=== PATIENT | female | born 1950 | race Caucasian/White ===

== ENCOUNTER 2016-11-12 18:21 | Inpatient (IN) | payer MEDICARE, MEDICAID ==
[~2016-11-12] VITALS: Ht 157.5 cm; Wt 82.1 kg
[2016-11-12 20:13] LABS: HEMATOCRIT 35.8 % (36.0-48.0); HEMOGLOBIN 12.2 g/dL (12-16); MCH 34.6 pg (26.0-34.0); MCHC 34.1 g/dL (31.0-37.0); MCV 101.4 fL (80.0-100.0); MEAN PLATELET VOLUME 11.3 fL (7.4-10.4); RBC 3.53 10x6/uL (4.00-5.40); RDW 14.2 % (11.5-14.5)
[2016-11-12 20:20] LABS: PLATELET COUNT 35 10x3/uL (130-400)
[2016-11-12 20:39] LABS: ALBUMIN 2.8 g/dL (3.4-5.0); ANION GAP 13.2 mmol/L (8-16); BILIRUBIN - TOTAL 4.01 mg/dL (0.2-1.3); CALCIUM 8.6 mg/dL (8.5-10.1); CARBON DIOXIDE 26.1 mmol/L (21.0-32.0); POTASSIUM - SERUM 4.3 mmol/L (3.5-5.1); PROTEIN - SERUM 6.8 g/dL (6.4-8.2)
[2016-11-12 20:43] LABS: LYMPHOCYTES 52 % (15-50); MONOCYTES 2 % (2-11); NEUTROPHILS 46 % (40-80); PLATELET ESTIMATE DECREASED
--- NOTE | 2016-11-12 22:50 | NUR ---
ARRIVED TO ROOM 2240 VIA WHEELCHAIR FROM ER. ACCOMPAINED BY STAFF AND FAMILY. AWAKE,ALERT,ORIENTED. COMPLAINTS OF FLU LIKE SYMPTOMS FOR A COUPLE OF DAYS. HAS NONPRODUCTIVE COUGH. IV INFUSING TO LEFT FOREARM WIHTOUT REDNESS OR EDEMA NOTED. PLACED ON DROPLET PRECAUTIONS PER ORDERS. CL IN REACH.
[2016-11-13 04:20] VITALS: BP 131/68; BMI 33.2
[2016-11-13 06:05] LABS: BASOPHILS 0 % (0.0-2.0); EOSINOPHILS 0 % (0-7); HEMATOCRIT 31.2 % (36.0-48.0); HEMOGLOBIN 10.9 g/dL (12-16); LYMPHOCYTES 28.6 % (15-50); MCH 34.9 pg (26.0-34.0); MCHC 34.9 g/dL (31.0-37.0); MEAN PLATELET VOLUME 10.6 fL (7.4-10.4); MONOCYTES 29.3 % (2-11); NEUTROPHILS 42.1 % (40-80); RBC 3.12 10x6/uL (4.00-5.40); RDW 14.4 % (11.5-14.5)
[2016-11-13 06:24] LABS: CARBON DIOXIDE 24.4 mmol/L (21.0-32.0); CREATININE - SERUM 1.6 mg/dL (0.6-1.3)
[2016-11-13 06:25] LABS: POTASSIUM - SERUM 3.4 mmol/L (3.5-5.1)
--- NOTE | 2016-11-13 06:25 | NUR ---
NO CHANGE IN ASSESSMENT. CL IN REACH
[2016-11-13 06:42] LABS: PLATELET COUNT 30 10x3/uL (130-400); WBC 1.5 10x3/uL (4.8-10.8)
[2016-11-13 07:44] LABS: % SATURATION 26 % (15-55); IRON 48 ug/dl (35-150); TOTAL IRON BIND CAPACITY 183 ug/dl (260-445); UNSAT IRON BIND CAPACITY 135 ug/dl (150-375)
[2016-11-13 07:45] LABS: FERRITIN 677 ng/mL (3-244); LDH 215 U/L (81-234)
--- NOTE | 2016-11-13 07:56 | NUR ---
PATIENT IS RESTING QUIETLY WITH EYES CLOSED. NO SIGNS OF DISTRESS NOTED. DROPLET PRECAUTIONS MAINTAINED. BED IN LOWEST POSITION, CALL LIGHT IN REACH. BED RAILS UP X'S 2.
--- NOTE | 2016-11-13 08:15 | NUR ---
TRIED TO SCAN TAMIFLU 75MG CAPSULE. WILL NOT SCAN, POPS UP MESSAGE "BARCODE UNKNOWN ENTER MANUALLY." CALLED AND SPOKE WITH BRANDEN FROM PHARMACY.
--- NOTE | 2016-11-13 11:27 | NUR ---
TAMIFLU WILL NOT SCAN. CALLED BRANDEN FROM PHARMACY.
--- NOTE | 2016-11-13 11:37 | NUR ---
Patient Name: STEPHANIE SAHA Admission Status: ER Accout number: [id number] Admission Date: 11-12-2016 : 1950 Admission Diagnosis: Attending: MARII Current LOS: 1 Anticipated DC Date: 11-17-2016 Planned Disposition: Home Primary Insurance: MEDICARE A & B Discharge Planning Comments: CM MET WITH PATIENT REGARDING D/C NEEDS AND PLANS. PATIENT STATED SHE LIVES AT HOME WITH HER SPOUSE AND DAUGHTER. FAMILY WILL DRIVE HER HOME AT DISCHARGE PER PATIENT. PATIENT HAS BEEN INDEPENDENT WITH HER CARE AND HAS A GLUCOMETER AT HOME (CHECKS 1X A DAY). PATIENTS PCP IS DR. ALVARENGA AT [facility] AND SHE THINKS HER PHARMACY IS [facility] ON [address] PATIENT DENIED NEEDS FOR HOME HEALTH AT THIS TIME. CM WILL CONTINUE TO FOLLOW PATIENT WITH D/C NEEDS AND PLANS. PCP DR. ALVARENGA [address]- [phone] ELIZABETH GRECO (DAUGHTER) [phone] Track Laminating Machine Tender: Jen Olmedo Is the patient Alert and Oriented? Yes 0 * PCP DR. ALVARENGA 0 * Pharm[facility]. [address] 0 * Preadmission Environment Home with Family 0 * ADLs Independent 0 * Equipment Glucometer 0 * List name and contact numbers for known caregivers / representatives who currently or will assist patient after discharge: ELIZABETH GRECO (DAUGHTER) [phone] 0 * Community resources currently utilized None 0 * Additional services required to return to the preadmission environment? Yes 0 * Can the patient safely return to the preadmission environment? Yes 0 * Has this patient been hospitalized within the prior 30 days at any hospital? No 0 Grand Total: 0
[2016-11-13 11:46] VITALS: BP 109/42
[2016-11-13] MEDS ORDERED: TAMIFLU75 MG PO (12:37)
[2016-11-13] MEDS ORDERED: LASIX40 MG PO (12:41)
[2016-11-13] MEDS ORDERED: ALDACTONE50 MG PO (12:43)
[2016-11-13] MEDS ORDERED: ZIAC 10-6.25 MG1 TAB PO (12:43)
[2016-11-13] MEDS ORDERED: GLUCOTROL 5 MG T5 MG PO (12:43)
[2016-11-13] MEDS ORDERED: SYNTHROID50 MCG PO (12:44)
[2016-11-13] MEDS ORDERED: KLOR-CON M2020 MEQ PO (12:44)
[2016-11-13 15:19] VITALS: Ht 157.5 cm; Wt 82.1 kg
[2016-11-13 15:34] VITALS: BP 113/64
--- NOTE | 2016-11-13 16:45 | NUR ---
PATIENT'S DAUGHTER STATED PATIENT WAS DX WITH LIVER CIRRHOSIS FROM HER DOCTOR IN [facility], AND TOLD SHE NEEDED A LIVER TRANSPLANT.
[2016-11-13 18:57] LABS: APPEARANCE CLEAR (CLEAR); BILIRUBIN NEGATIVE (NEGATIVE); COLOR DK YELLOW (YELLOW); GLUCOSE NEGATIVE (NEGATIVE); KETONE NEGATIVE (NEGATIVE); LEUKOCYTE ESTERASE TRACE (NEGATIVE); NITRITE NEGATIVE (NEGATIVE); PROTEIN NEGATIVE (NEGATIVE)
[2016-11-13 18:58] LABS: BACTERIA MODERATE /hpf (NONE SEEN); MUCUS <1+ /lpf (NONE SEEN); RED CELLS - URINE 0-5 /hpf (0-5); WHITE CELLS - URINE 0-5 /hpf (0-5)
[2016-11-13 21:54] VITALS: BP 120/37
--- NOTE | 2016-11-14 00:34 | NUR ---
PT IS ALERT AND ORIENTED, ABLE TO VERBALIZE NEEDS. THE PT IS IN ISOLATION FOR DROPLET, POSSIBLE FLU. SHE HAD HER BOYFRIEND WITH HER UNTIL ABOUT 2200. SHE HAS ABLE TO TAKE HER MEDS AT BEDTIME ORDERED AND HAS BEEN ASSISTED UP TO VOID WHEN NEEDED. THE BED IS LOW, RAILS UP X'S 2 WITH THE CALL LIGHT AT HAND.
[2016-11-14 06:10] LABS: HEMATOCRIT 34.1 % (36.0-48.0); HEMOGLOBIN 11.7 g/dL (12-16); MCH 34.5 pg (26.0-34.0); MCHC 34.3 g/dL (31.0-37.0); MCV 100.6 fL (80.0-100.0); RBC 3.39 10x6/uL (4.00-5.40); RDW 14.3 % (11.5-14.5)
[2016-11-14 06:30] LABS: WBC 2.2 10x3/uL (4.8-10.8)
[2016-11-14 06:31] LABS: PLATELET COUNT 29 10x3/uL (130-400)
[2016-11-14 06:36] LABS: ALBUMIN 2.6 g/dL (3.4-5.0); BILIRUBIN - TOTAL 3.34 mg/dL (0.2-1.3); CALCIUM 7.9 mg/dL (8.5-10.1); CARBON DIOXIDE 23.5 mmol/L (21.0-32.0); CREATININE - SERUM 1.5 mg/dL (0.6-1.3); POTASSIUM - SERUM 3.5 mmol/L (3.5-5.1); PROTEIN - SERUM 6.5 g/dL (6.4-8.2)
[2016-11-14 07:31] LABS: LYMPHOCYTES 28 % (15-50); MONOCYTES 4 % (2-11); NEUTROPHILS 52 % (40-80)
[2016-11-14 07:33] LABS: PLATELET ESTIMATE DECREASED; SPHEROCYTES 1+; TEAR DROP CELLS OCC
[2016-11-14 08:21] LABS: FOLATE (FOLIC ACID) - SERUM 11.4 ng/mL (>3.0)
[2016-11-14 08:44] VITALS: BP 122/41
--- NOTE | 2016-11-14 09:39 | NUR ---
AWAKE AND ALERT. ORIENTED X3. C/O SORE THROAT THIS AM. TOOK AM MEDS OK. REFUSED BREAKFAST TRAY. LUNGS HAVE CRACKLES IN BILATERAL LOWER LOBES. OCCASSIONAL PRODUCTIVE COUGH NOTED. IV TO LEFT FOREARM PATENT WITHOUT REDNESS AT INSERTION SITE. DENIES NEEDS. SKIN IS INTACT WITHOUT REDNESS.
--- NOTE | 2016-11-14 11:00 | NUR ---
RESTING QUIETLY WITH EYES CLOSED.
[2016-11-14 11:49] VITALS: BP 133/43
--- NOTE | 2016-11-14 13:00 | NUR ---
UP TO BR WITH ONE PERSON ASSIST. VOIDED 400CC CLEAR YELLOW URINE WITHOUT DIFFICULTY, SKIN CARE PER SELF. REPOSITIONED IN BED FOR COMFORT.
[2016-11-14 13:16] LABS: HAPTOGLOBIN <10 mg/dL (34-200)
[2016-11-14 15:23] LABS: SPE - A/G RATIO 0.8 (0.7-1.7); SPE - ALBUMIN 2.6 g/dL (2.9-4.4); SPE - ALPHA-1 GLOBULIN 0.2 g/dL (0.0-0.4); SPE - ALPHA-2 GLOBULIN 0.3 g/dL (0.4-1.0); SPE - BETA GLOBULIN 0.7 g/dL (0.7-1.3); SPE - M-SPIKE Not Observed g/dL (Not Observed); SPE - TOTAL PROTEIN 5.8 g/dL (6.0-8.5)
[2016-11-14 15:37] VITALS: BP 106/32
--- NOTE | 2016-11-14 16:00 | NUR ---
UP TO BR WITH MIN ASSIST OF ONE. HAD LEAKAGE ON THE WAY TO BR. VOIDED WITHOUT DIFFICULTY. REPOSITIONED IN BED FOR COMFORT.
--- NOTE | 2016-11-14 17:00 | NUR ---
FSBS 56. VISION BLURRY AND SKIN SLIGHTLY CLAMMY. GIVEN 1/2 AMP D50 AND WILL RECHECK.
--- NOTE | 2016-11-14 18:27 | NUR ---
[id number] AT THIS TIME. ALL SYMPTOMS GONE. NO CHANGES NOTED.
[2016-11-14 21:45] VITALS: BP 110/38
--- NOTE | 2016-11-14 22:59 | NUR ---
ASSESSED AT THE TIME OF ARRIVAL FROM ICU. PT IS ALERT AND ORIENTED, ABLE TO VERBALIZE NEEDS. SHE HAS FLUIDS INFUSING TO HER RIGHT HAND ORDERED AND WE HAVE IN IN NEUTROPENIA FOR HER JPROTECTION. O2 IS AT 2 LITERS AND WE ARE ASSISTING HER UP TO THE BATHROOM TO VOID. SHE RECEIVED PAIN MEDS JUST BEFORE COMING TO OUR FLOOR AND SHE IS FAILY COMFORTABLE AT THIS TIME. THE BED IS LOW, RAILS UP X'S 2 WITH THE CALL LIGHT AT HAND.
[2016-11-14 23:00] VITALS: BP 98/38
--- NOTE | 2016-11-14 23:59 | NUR ---
ASSESSED AT THE BEGINNING OF THE SHIFT. PT IS ALERT AND ORIENTED, ABLE TO VERBALIZE NEEDS. SHE IS NOT FEELING BAD TONIGHT SHE WAS LAST NIGHT. SHE REMAINS IN ISOLATION FOR DROPLET DUE TO FLU. SHE IS INCONT. FREQUENTLY AND NEEDS CLEANED UP. HER BOYFRIEND WAS AT THE BEDSIDE UNTIL ABOUT 2100 AND THEN HE LEFT. SHE WAS GIVEN A SNACK FOR HER HS BLOOD SUGAR AND WE WILL KEEP AN EYE ON HER BS. THE BED IS LOW, RAILS UP X'S 2 WITH THE CALL LIGHT AT HAND.
[2016-11-15 04:00] VITALS: BP 84/33
[2016-11-15 07:37] LABS: BASOPHILS 0 % (0.0-2.0); EOSINOPHILS 0 % (0-7); HEMATOCRIT 29.4 % (36.0-48.0); HEMOGLOBIN 10.2 g/dL (12-16); LYMPHOCYTES 30.3 % (15-50); MCH 34.6 pg (26.0-34.0); MCHC 34.7 g/dL (31.0-37.0); MCV 99.7 fL (80.0-100.0); MEAN PLATELET VOLUME 11.4 fL (7.4-10.4); MONOCYTES 27.7 % (2-11); RBC 2.95 10x6/uL (4.00-5.40); RDW 14.2 % (11.5-14.5)
[2016-11-15 07:40] LABS: WBC 1.2 10x3/uL (4.8-10.8)
[2016-11-15 07:41] LABS: PLATELET COUNT 24 10x3/uL (130-400)
[2016-11-15 07:45] LABS: ANION GAP 9.2 mmol/L (8-16); BILIRUBIN - TOTAL 2.24 mg/dL (0.2-1.3); CALCIUM 7.5 mg/dL (8.5-10.1); CREATININE - SERUM 1.2 mg/dL (0.6-1.3); POTASSIUM - SERUM 3.2 mmol/L (3.5-5.1); PROTEIN - SERUM 5.3 g/dL (6.4-8.2)
[2016-11-15 08:57] VITALS: BP 128/70
--- NOTE | 2016-11-15 09:09 | NUR ---
AWAKE AND AELRT. RECHECK ON FSBS 137. LUNGS ARE CLEAR BILATERALLY BUT DIMINISHED IN RIGHT LL. PRODUCTIVE COUGH NOTED WITH GRAYISH SPUTUM. SKIN IS INTACT WITHOUT REDNESS. IV TO RIGHT FOREARM IS PATENT WITHOUT REDNESS AT INSERTION SITE. REPORTS VISION NORMAL AT THIS TIME. TO BR WITH SBA. VOIDED CLEAR YELLOW URINE TIWTHOUT DIFFICULTY. UP WITH PT AT THIS TIME.
--- NOTE | 2016-11-15 10:00 | NUR ---
AMBULATED IN HALLWAY WITH PT. RESTING QUIETLY IN BED AT THIS TIME.
--- NOTE | 2016-11-15 12:00 | NUR ---
FSBS 106. LUNCH TRAY SERVED IN ROOM. ENCOURAGED TO EAT ALL OF MEAL. WILL MONITOR.
[2016-11-15 12:24] VITALS: BP 122/68
--- NOTE | 2016-11-15 15:57 | NUR ---
RESTING QUIETLY WITH EYES CLOSED. DENIES NEEDS.
[2016-11-15 16:02] VITALS: BP 111/64
--- NOTE | 2016-11-15 18:47 | NUR ---
FSBS PRIOR TO MEAL WAS 137. NO COVERAGE NEEDED. ATE ALL OF SUPPER TRAY WITHOUT DIFFICULTY. NO CHANGES NOTED. DENIES NEEDS.
--- NOTE | 2016-11-15 20:11 | NUR ---
REC'D LYING IN BED AWAKE AND ALERT. RESP EVEN AND UNLABORED WITH NO DISTRESS NOTED. CAN EXPRES NEEDS AND WANTS. C/O HIP AND LEG PAIN RATING 7/10 ON PAIN SCALE. ASSESSEMENT COMPLETED. C/L IN REACH AT BEDSIDE.
[2016-11-15 20:44] VITALS: BP 123/54
[2016-11-16 06:46] LABS: ALBUMIN 2.1 g/dL (3.4-5.0); ANION GAP 10.6 mmol/L (8-16); BILIRUBIN - TOTAL 2.28 mg/dL (0.2-1.3); CALCIUM 7.6 mg/dL (8.5-10.1); CARBON DIOXIDE 25.8 mmol/L (21.0-32.0); CREATININE - SERUM 1.2 mg/dL (0.6-1.3); POTASSIUM - SERUM 3.4 mmol/L (3.5-5.1); PROTEIN - SERUM 5.7 g/dL (6.4-8.2)
[2016-11-16 07:15] LABS: BASOPHILS 0.7 % (0.0-2.0); EOSINOPHILS 1.4 % (0-7); HEMATOCRIT 30.6 % (36.0-48.0); HEMOGLOBIN 10.5 g/dL (12-16); LYMPHOCYTES 28.9 % (15-50); MCH 34.4 pg (26.0-34.0); MCHC 34.3 g/dL (31.0-37.0); MCV 100.3 fL (80.0-100.0); MEAN PLATELET VOLUME 11.1 fL (7.4-10.4); MONOCYTES 21.1 % (2-11); NEUTROPHILS 47.9 % (40-80); RBC 3.05 10x6/uL (4.00-5.40); RDW 14.3 % (11.5-14.5)
[2016-11-16 07:16] LABS: PLATELET COUNT 23 10x3/uL (130-400); WBC 1.4 10x3/uL (4.8-10.8)
[2016-11-16 07:53] VITALS: BP 126/72
--- NOTE | 2016-11-16 08:18 | NUR ---
AWAKE AND ALERT. ORIENTED X3. NO C/O THIS AM. LUNGS ARE CLEAR THROUGHOUT LUNG CUELLAR BUT DIMINISHED. COUGH IS PRODUCTIVE AT TIMES BUT LESS FREQUENT THAN YESTERDAY. IV TO RIGHT FOREARM IS PATENT WITHOUT REDNESS AT INSERTION SITE. SKIN IS INTACT WITHOUT REDNESS. DENIES NEEDS.
--- NOTE | 2016-11-16 10:00 | NUR ---
VISITOR AT BEDSIDE. DENIES NEEDS.
[2016-11-16 15:56] VITALS: BP 124/68
--- NOTE | 2016-11-16 19:03 | NUR ---
FSBS BEFORE SUPPER WAS 194. GIVEN 2 UNITS HUMALOG SUBQ FOR SAME. ATE 100% OF SUPPER. SIGNIFICANT OTHER IN ROOM. NO CHANGES NOTED. DENIES NEEDS.
--- NOTE | 2016-11-16 21:30 | NUR ---
PT WAS DISCHARGED AT THIS TIME WITH PERSONAL BELONGS. PT REFUSED TO LET STAFF TAKE HER OUT IN W/C.
[2016-11-17 16:12] LABS: PARVOVIRUS B-19 - IGG 9.1 index (0.0-0.8); PARVOVIRUS B-19 - IGM 0.3 index (0.0-0.8)
[2016-11-19 15:22] LABS: AEROBE ID Final report (())
== END 2016-11-16 21:30 | disposition home or self-care (01) | DRG 809 ==
LOC: D.ER 18:21 → D.MS 21:10
PROVIDERS: Emergency Medicine; Legal Medicine; Physician Assistant Medical; ADMIT Family Medicine
DX: D61.818 Other pancytopenia (principal); N17.9 Acute kidney failure, unspecified; J11.1 Influenza due to unidentified influenza virus with other respiratory manifestations; E86.0 Dehydration; R53.81 Other malaise; R53.83 Other fatigue; E03.9 Hypothyroidism, unspecified; I10 Essential (primary) hypertension; R01.1 Cardiac murmur, unspecified; E11.65 Type 2 diabetes mellitus with hyperglycemia

== ENCOUNTER 2017-03-22 15:21 | Emergency (ER) | payer MEDICARE, MEDICAID ==
[2016-11-13 15:19] VITALS: BMI 33.1
[~2017-03-22 15:21] MED LIST: ALDACTONE50 MG PO; GLUCOTROL 5 MG T5 MG PO; KLOR-CON M2020 MEQ PO; LASIX40 MG PO; SYNTHROID50 MCG PO; TAMIFLU75 MG PO; ZIAC 10-6.25 MG1 TAB PO
== END 2017-03-22 16:58 | disposition home or self-care (01) ==
LOC: D.ER 15:21
DX: F41.0 Panic disorder [episodic paroxysmal anxiety] (principal); E11.9 Type 2 diabetes mellitus without complications; I10 Essential (primary) hypertension; E03.9 Hypothyroidism, unspecified; R06.00 Dyspnea, unspecified; R00.1 Bradycardia, unspecified

== ENCOUNTER 2017-04-16 20:30 | Inpatient (IN) | payer MEDICARE, MEDICAID ==
[~2017-04-16] VITALS: Ht 157.5 cm; Wt 85.3 kg
[2017-04-16 21:14] LABS: APPEARANCE CLEAR (CLEAR); COLOR YELLOW (YELLOW); LEUKOCYTE ESTERASE NEGATIVE (NEGATIVE); NITRITE NEGATIVE (NEGATIVE)
[2017-04-16 21:15] LABS: BILIRUBIN NEGATIVE (NEGATIVE); GLUCOSE NEGATIVE (NEGATIVE); KETONE NEGATIVE (NEGATIVE); PROTEIN NEGATIVE (NEGATIVE)
[2017-04-16 21:17] LABS: UDS - AMPHET NEGATIVE QUAL (NEGATIVE); UDS - BARB NEGATIVE QUAL (NEGATIVE); UDS - BENZO NEGATIVE QUAL (NEGATIVE); UDS - COCAINE NEGATIVE QUAL (NEGATIVE); UDS - METH NEGATIVE QUAL (NEGATIVE); UDS - OPIATE NEGATIVE QUAL (NEGATIVE); UDS - PCP NEGATIVE QUAL (NEGATIVE); UDS - THC NEGATIVE QUAL (NEGATIVE)
[2017-04-16 21:19] LABS: BASOPHILS 0.4 % (0-2); EOSINOPHILS 1.6 % (0-7); HEMATOCRIT 32.5 % (36.0-48.0); HEMOGLOBIN 11.3 g/dL (12-16); IMMATURE GRANULOCYTES 0.4 % (0-5); LYMPHOCYTES 17.1 % (15-50); MCHC 34.8 g/dL (31.0-37.0); MCV 100.6 fL (80.0-100.0); MEAN PLATELET VOLUME 9.7 fL (7.4-10.4); NEUTROPHILS 64.5 % (40-80); RBC 3.23 10x6/uL (4.00-5.40); WBC 5.1 10x3/uL (4.8-10.8)
[2017-04-16 21:24] LABS: PLATELET COUNT 62 10x3/uL (130-400)
[2017-04-16 21:43] LABS: PLATELET ESTIMATE DECREASED
[2017-04-16 21:54] LABS: ALBUMIN 2.7 g/dL (3.4-5.0); ANION GAP 9.8 mmol/L (8-16); BILIRUBIN - TOTAL 4.32 mg/dL (0.2-1.3); CALCIUM 9.1 mg/dL (8.5-10.1); CARBON DIOXIDE 23.6 mmol/L (21.0-32.0); CREATININE - SERUM 1.4 mg/dL (0.6-1.3); POTASSIUM - SERUM 4.4 mmol/L (3.5-5.1); PROTEIN - SERUM 7.1 g/dL (6.4-8.2)
[2017-04-16 23:58] VITALS: BP 172/68; BMI 34.4
[2017-04-17] VITALS (7 sets, daily range): BP systolic 108–172; BP diastolic 41–79
--- NOTE | 2017-04-17 00:07 | NUR ---
RN NOTE: ADMISSION ASSESSMENT COMPLETE. PT HAS MEMORY DEFICITS AND C/O CONSTIPATION. BED ALARM IN PLACE FOR SAFETY. WILL MONITOR CLOSELY FOR NEEDS.
--- NOTE | 2017-04-17 07:00 | NUR ---
REPORT RECIEVED ASSUMED CARE. PATIENT IN BED WITH IV INTACT. NO COMPLAINTS. CALL LIGHT WITHIN REACH.
--- NOTE | 2017-04-17 07:10 | NUR ---
REPORT RECIEVED ASSUMED CARE. PATIENT IN BED WITH IV INTACT. NO COMPLAINTS AT THIS TIME. CALL LIGHT WITHIN REACH.
[2017-04-17 09:40] LABS: BASOPHILS 0.4 % (0-2); EOSINOPHILS 2.8 % (0-7); HEMATOCRIT 26.3 % (36.0-48.0); HEMOGLOBIN 9.1 g/dL (12-16); LYMPHOCYTES 28.5 % (15-50); MCH 34.5 pg (26.0-34.0); MCHC 34.6 g/dL (31.0-37.0); MCV 99.6 fL (80.0-100.0); MEAN PLATELET VOLUME 11.1 fL (7.4-10.4); MONOCYTES 12.6 % (2-11); NEUTROPHILS 55.7 % (40-80); RBC 2.64 10x6/uL (4.00-5.40)
[2017-04-17 09:45] LABS: ALBUMIN 2.2 g/dL (3.4-5.0); ANION GAP 12.6 mmol/L (8-16); BILIRUBIN - TOTAL 4.55 mg/dL (0.2-1.3); CALCIUM 8.6 mg/dL (8.5-10.1); CARBON DIOXIDE 20.9 mmol/L (21.0-32.0); CREATININE - SERUM 1.1 mg/dL (0.6-1.3); POTASSIUM - SERUM 4.5 mmol/L (3.5-5.1); PROTEIN - SERUM 5.8 g/dL (6.4-8.2)
[2017-04-17 10:09] LABS: WBC 2.5 10x3/uL (4.8-10.8)
[2017-04-17 10:10] LABS: PLATELET COUNT 21 10x3/uL (130-400)
--- NOTE | 2017-04-17 10:17 | NUR ---
Rehab Note- Acute Rehab Prescreen order received. The patient has an acute rehab diagnosis, will await Physical therapy eval to see patient's physical mobility. Will follow at this time. Thank you for this referral! Stefanie Gonzalez RN Clinical Liaison, [facility] Rehab
--- NOTE | 2017-04-17 11:28 | NUR ---
Rehab Note- Visited with the patient and provided acute rehab information and also my contact. Will plan on admitting to [facility] Acute Inpatient Rehab when the is ready for discharge from the acute hospital. Thank you for this referral! Stefanie Gonzalez RN Clinical Liaison, [facility] Rehab
--- NOTE | 2017-04-17 11:30 | NUR ---
PLATELETS READY AT THIS TIME. EXPLAINED TO PATIENT WOULD HAVE HER PLATELETS FOR HER AFTER LUNCH AND GET HER TO SIGN CONSENT. VERBALIZED UNDERSTANDING. CALL LIGHT WITHIN REACH. FAMILY AT BEDSIDE.
[2017-04-17] MEDS ORDERED: BAYER ASPIRIN325 MG PO (11:59)
[2017-04-17] MEDS ORDERED: KLOR-CON M2020 MEQ PO (11:59)
[2017-04-17] MEDS ORDERED: LISINOPRIL10 MG PO (12:00)
[2017-04-17] MEDS ORDERED: DULCOLAX10 MG/SUPP RC (12:00)
[2017-04-17] MEDS ORDERED: LASIX40 MG (12:08)
[2017-04-17] MEDS ORDERED: PROTONIX20 MG PO (12:09)
[2017-04-17] MEDS ORDERED: OMNIPRED5 ML (12:13)
[2017-04-17] MEDS ORDERED: OCUFLOX 0.3 % OP5 ML RIGHT EYE (12:16)
--- NOTE | 2017-04-17 12:30 | NUR ---
PATIENT SIGNED CONSENT AT THIS TIME. IV INTACT. NO COMPLAINTS. WILL START PLATELETS AFTER PATIENT FINISHES EATING.
--- NOTE | 2017-04-17 13:45 | NUR ---
PATIENT GETTING ECHO DONE AT THIS TIME.
--- NOTE | 2017-04-17 14:15 | NUR ---
PATIENT IV REMOVED DUE TO BLEEDING. WILL RESTART WHEN BACK FROM MRI AND GIVE PLATELETS.
--- NOTE | 2017-04-17 15:30 | NUR ---
IV RESTARTED IN RIGHT AC X 3 STICKS. PATIENT TOLERATED WITH SMALL AMOUNT OF PAIN. FAMILY AT BEDSIDE. CALL LIGHT WITHIN REACH.
--- NOTE | 2017-04-17 15:50 | NUR ---
PLATELETS STARTED AT THIS TIME. STABLE. NO COMPLAINTS OR SIGNS OF DISTRESS. FAMILY AT BEDSIDE. WILL CONTINUE TO MONITOR.
--- NOTE | 2017-04-17 16:10 | NUR ---
PLATELETS FINISHED AT THIS TIME. VS STABLE. NO COMPLAINTS. CALL LIGHT WITHIN REACH.
--- NOTE | 2017-04-17 16:15 | NUR ---
PATIENT RECIEVED DISCHARGE INSTRUCTIONS VERBALIZED UNDERSTANDING. IV REMOVED WITH CATH TIP INTACT. PATIENT REFUSED WHEELCHAIR, AMBULATED DOWN TO PRIVATE VEHICLE WITH PERSONAL BELONGINGS. CALL LIGHT WITHIN REACH.
--- NOTE | 2017-04-17 16:20 | NUR ---
PATIENT SECOND UNIT OF PLATELETS GOING. NO COMPLAINTS OR SIGNS OF DISTRESS. VS STABLE. CALL LIGHT WITHIN REACH. FAMILY AT BEDSIDE.
--- NOTE | 2017-04-17 17:45 | NUR ---
PATIENT SITTING UP IN BED EATING. NO COMPLAINTS. CALL LIGHT WITHIN REACH.
[2017-04-18 03:58] VITALS: BP 122/46
[2017-04-18 05:20] LABS: BASOPHILS 0.4 % (0-2); EOSINOPHILS 2.2 % (0-7); HEMOGLOBIN 9.5 g/dL (12-16); LYMPHOCYTES 20.5 % (15-50); MCH 35.3 pg (26.0-34.0); MCHC 35.2 g/dL (31.0-37.0); MCV 100.4 fL (80.0-100.0); MEAN PLATELET VOLUME 9.1 fL (7.4-10.4); MONOCYTES 18.3 % (2-11); NEUTROPHILS 58.6 % (40-80); RBC 2.69 10x6/uL (4.00-5.40); RDW 15.1 % (11.5-14.5); WBC 2.8 10x3/uL (4.8-10.8)
[2017-04-18 05:23] LABS: PLATELET COUNT 50 10x3/uL (130-400)
[2017-04-18 05:56] LABS: ALBUMIN 2.3 g/dL (3.4-5.0); ANION GAP 12.9 mmol/L (8-16); BILIRUBIN - TOTAL 3.23 mg/dL (0.2-1.3); CALCIUM 8.6 mg/dL (8.5-10.1); CARBON DIOXIDE 22.1 mmol/L (21.0-32.0); CHOL - HDL RATIO 2.8 ratio (2.3-4.1); CREATININE - SERUM 1.3 mg/dL (0.6-1.3); LDL-HDL RATIO 1.4 ratio (1.5-3.5); PROTEIN - SERUM 6.2 g/dL (6.4-8.2)
--- NOTE | 2017-04-18 06:52 | NUR ---
CRITICAL AMMONIA - 110. INCREASE LACTULOSE TO [address] CARLTON TELEPHONE ORDER.
--- NOTE | 2017-04-18 07:05 | NUR ---
PT REC'D FROM [facility]. RESTING IN BED WATCHING TV. AAOX4. PUPILS PERRLA. NO COMPLAINTS OF PAIN. REGULAR HEART RATE AND RHYTHM. PHOTOGRAPHERS' MODEL. ON. LUNG SOUNDS CLEAR AND EQUAL BILAT. ABD ROUND, BOWEL SOUNDS ACTIVE X4 QUADS, SOFT WITH NO PAIN ON PALPATION. SLIGHT YELLOW COLOR NOTED TO POSTERIOR FOREARMS. +2 PEDAL PULSES BILAT. SCD'S OFF AT THIS TIME. PIV TO R AC FREE OF REDNESS AND SWELLING. BED LOW, CALL LIGHT IN REACH, DENIES NEEDS. CPOC.
[2017-04-18 08:13] LABS: APTT 38.3 SECONDS (22.8-39.4); INR 1.75 (0.85-1.17); PROTIME 20.4 SECONDS (11.6-15.0)
[2017-04-18 09:02] VITALS: BP 107/44
--- NOTE | 2017-04-18 09:15 | NUR ---
MORNING MEDS PASSED AT THIS TIME. BED LOW, CALL LIGHT IN REACH, DENIES NEEDS AT THIS TIME. CPOC.
--- NOTE | 2017-04-18 10:45 | NUR ---
DR. ZABALA AT BEDSIDE DISCUSSING POC. BOYFRIEND AT BEDSIDE. UPDATE PROVIDED. CONTRAST BROUGHT OVER BY BJ JOSHUA FROM CT. EXTRA BLANKET PROVIDED. BED LOW, CALL LIGHT IN REACH, DENIES NEEDS. CPOC.
[2017-04-18 12:44] VITALS: BP 126/52
--- NOTE | 2017-04-18 14:30 | NUR ---
CALLED TO ASK ABOUT PT CT SCAN AND WHEN IT WOULD BE DONE. SPOKE WITH SAVANNAH. STATED, "SHE'S NEXT IN THE PILE!" MESSAGE RELAYED TO PATIENT. PT HAD LARGE WATER BM. HAS BEEN KEPT NPO FOR CT SCAN. BED LOW, CALL LIGTH IN REACH, DENIES NEEDS. CPOC.
[2017-04-18 15:36] VITALS: BP 135/47
[2017-04-18 19:00] VITALS: BP 113/37
[2017-04-19] VITALS: BP 114/38
[2017-04-19 04:00] VITALS: BP 103/35
[2017-04-19 07:31] LABS: BASOPHILS 0.2 % (0-2); EOSINOPHILS 2.4 % (0-7); HEMATOCRIT 30.1 % (36.0-48.0); HEMOGLOBIN 10.7 g/dL (12-16); IMMATURE GRANULOCYTES 0.3 % (0-5); LYMPHOCYTES 15.3 % (15-50); MCHC 35.5 g/dL (31.0-37.0); MCV 101.3 fL (80.0-100.0); MEAN PLATELET VOLUME 9.9 fL (7.4-10.4); MONOCYTES 14.3 % (2-11); NEUTROPHILS 67.5 % (40-80); PLATELET COUNT 55 10x3/uL (130-400); RBC 2.97 10x6/uL (4.00-5.40); RDW 15.8 % (11.5-14.5)
[2017-04-19 07:45] LABS: WBC 5.8 10x3/uL (4.8-10.8)
[2017-04-19 08:07] LABS: ALBUMIN 2.2 g/dL (3.4-5.0); ANION GAP 12.9 mmol/L (8-16); BILIRUBIN - TOTAL 3.65 mg/dL (0.2-1.3); CALCIUM 8.5 mg/dL (8.5-10.1); CARBON DIOXIDE 22.3 mmol/L (21.0-32.0); CREATININE - SERUM 1.3 mg/dL (0.6-1.3); POTASSIUM - SERUM 4.2 mmol/L (3.5-5.1); PROTEIN - SERUM 6.1 g/dL (6.4-8.2)
--- NOTE | 2017-04-19 09:03 | NUR ---
PATIENT ALERT IN MID DORANTES POSITION. RESPIRATIONS EVEN AND UNLABORED. SIDE RAILS UP X2. BED IN LOW POSITION. CALL LIGHT IN REACH.
[2017-04-19 09:41] VITALS: BP 105/46
[2017-04-19 12:33] VITALS: BP 117/33
[2017-04-19 17:38] VITALS: BP 115/30
[2017-04-19 20:00] VITALS: BP 117/35
--- NOTE | 2017-04-19 22:00 | NUR ---
RECEIVED VIT K IVPB FROM JUNE, [employer] AND ADMINISTERED TO PT ALONG WITH ORAL MEDS THAT WERE "UNVERIFIED" AND NOT AVAILABLE D/T PHARMACY CLOSED. PT ALERT & ORIENTED. CONTINUES TO HAVE LOOSE STOOLS WITH ADMINISTRATION OF LACTULOSE. COMPLETE ASSESSMENT PER FLOW-SHEET. WILL CONTINUE TO MONITOR.
[2017-04-20] VITALS: BP 129/38
[2017-04-20 04:00] VITALS: BP 104/38
[2017-04-20 05:52] LABS: BASOPHILS 0.2 % (0-2); EOSINOPHILS 2.8 % (0-7); HEMATOCRIT 28.5 % (36.0-48.0); HEMOGLOBIN 9.8 g/dL (12-16); IMMATURE GRANULOCYTES 0.2 % (0-5); LYMPHOCYTES 20.6 % (15-50); MCH 34.8 pg (26.0-34.0); MCHC 34.4 g/dL (31.0-37.0); MCV 101.1 fL (80.0-100.0); MEAN PLATELET VOLUME 9.8 fL (7.4-10.4); MONOCYTES 15.9 % (2-11); NEUTROPHILS 60.3 % (40-80); PLATELET COUNT 53 10x3/uL (130-400); RBC 2.82 10x6/uL (4.00-5.40); RDW 15.7 % (11.5-14.5); WBC 5.3 10x3/uL (4.8-10.8)
[2017-04-20 05:53] LABS: INR 1.86 (0.85-1.17); PROTIME 21.4 SECONDS (11.6-15.0)
[2017-04-20 06:17] LABS: % SATURATION 93 % (15-55); IRON 161 ug/dl (35-150); TOTAL IRON BIND CAPACITY 172 ug/dl (260-445)
[2017-04-20 06:18] LABS: UNSAT IRON BIND CAPACITY 11 ug/dl (150-375)
[2017-04-20 06:24] LABS: ALBUMIN 2.2 g/dL (3.4-5.0); BILIRUBIN - TOTAL 4.1 mg/dL (0.2-1.3); CALCIUM 8.5 mg/dL (8.5-10.1); CARBON DIOXIDE 21.2 mmol/L (21.0-32.0); CREATININE - SERUM 1.2 mg/dL (0.6-1.3); POTASSIUM - SERUM 4.2 mmol/L (3.5-5.1); PROTEIN - SERUM 5.8 g/dL (6.4-8.2)
--- NOTE | 2017-04-20 07:30 | NUR ---
PT ASSESMENT COMPLETE SEE FLOWSHEET AWAKE AND ALERT ORINETED X 3 LUNGS CLAER PT WITH ABD DISTENTION NO TENDERNESS NOTED AT THIS TIME. ALL ALDS PER MINIMAL ASSIST UP AD BRYAN FOR TOILETING HAS SOME YELLOWING NOTED TO SCLERA BILATERAL. WILL MONITOR.
[2017-04-20 09:32] VITALS: BP 137/66
--- NOTE | 2017-04-20 10:21 | NUR ---
Patient Name: STEPHANIE SAHA Admission Status: ER Accout number: [id number] Admission Date: 04-16-2017 : 1950 Admission Diagnosis:CEREBRAL INFARCTION, UNSPECIFIED Attending: FOSTER Current LOS: 4 Anticipated DC Date: 04-22-2017 Planned Disposition: Home Primary Insurance: MEDICARE A & B Discharge Planning Comments: CM MET WITH PATIENT REGARDING D/C NEEDS AND PLANS. PATIENTS STATED SHE LIVES WITH HER BOYFRIEND (EDILIA BUCK) AND HER DAUGHTER LIVES WITH THEM. PATIENT STATED SHE HAS A RAMP TO ENTER HER HOME AND NO STAIRS INSIDE. PATIENT IS INDEPENDENT WITH HER CARE AND HAS A WALKER, MOTORIZED WHEELCHAIR, SHOWER CHAIR, AND GLUCOMETER (CHECKS DAILY). PATIENT SEES [facility]. PATIENT DID NOT WANT HOME HEALTH AT THIS TIME. CM WILL CONTINUE TO FOLLOW PATIENT WITH D/C NEEDS AND PLANS. PCP [facility] [employer] [facility]- [phone] EDILIA BUCK (BOYFRIEND) TEXT ONLY [phone] ELIZABETH GRECO (DAUGHTER) [phone] Strategic Alliances Manager: Jen Olmedo Is the patient Alert and Oriented? Yes 0 * How many steps to enter\exit or inside your home? RAMP 0 * PCP [facility] 0 * Pharmacy [facility] [address] 0 * Preadmission Environment Home with Family 0 * ADLs Independent 0 * Equipment Glucometer Shower Chair Walker Wheelchair 0 * List name and contact numbers for known caregivers / representatives who currently or will assist patient after discharge: ELIZABETH GRECO (DAUGHTER) [phone] EDILIA BUCK (BOYFRIEND) [phone] TEXT ONLY 0 * Community resources currently utilized None 0 * Additional services required to return to the preadmission environment? Yes 0 * Can the patient safely return to the preadmission environment? Yes 0 * Has this patient been hospitalized within the prior 30 days at any hospital? No 0 Grand Total: 0
--- NOTE | 2017-04-20 10:29 | NUR ---
Rehab Note- The patient continues to have a medical work up- having thorough lab work up, bone marrow biopsy, and liver ultrasound. Will accept the patient to [facility] acute rehab when medically stable & ready for discharge from the acute hospital. Spoke with KRYSTLE Li. Will continue to follow at this time. Thank you for this referral! Stefanie Gonzalez RN Clinical Liaison, [facility] Rehab
--- NOTE | 2017-04-20 11:28 | NUR ---
PT RESTING IN BED NPO AT THIS TIME IS TO HAVE BONE MARROW BIOPSY THIS AFTERNOON PER IR
[2017-04-20 11:58] VITALS: BP 110/38
--- NOTE | 2017-04-20 16:38 | NUR ---
OT NOTE: PT COMPLETED ADL MOB WITH SBA. PT COMPLETED BED MOB WITH SUPV. PT COMPLETED TOILETING WITH SUPV. PT COMPLETED HYGIENE TASKS WITH SBA. PT COMPLETED BUE AROM EXS FOR INCREASED I WITH ADLS. THANK YOU, VAISHNAVI TALBOT
[2017-04-20 17:16] VITALS: BP 125/30
--- NOTE | 2017-04-20 18:12 | NUR ---
NO DISTRESS NOTED FAMILY AT SIDE CALL LIGHT INREACH SIDE RAILS UP X 2 VOICES NEEDS TO STAFF
[2017-04-20 19:00] VITALS: BP 93/34
--- NOTE | 2017-04-20 20:43 | NUR ---
Wade) REC'D.IN BED VISITORS AT BED SIDE.ALERT ORIENTED X3 AT PRESENT TIME CATRACHITA DENIES ANY DISCOMFORT AT PRESENT TIME WILL CONTINUE TO MONITOR FOR ANY CHGES. AND FOLLOW CURRENT PLAN OF CARE.
[2017-04-21] VITALS (7 sets, daily range): BP systolic 106–141; BP diastolic 28–98; Ht 157.5 cm; Wt 85.3 kg
--- NOTE | 2017-04-21 02:00 | NUR ---
PT WITH CALL LIGHT ON REQUESTING ICE WATER THAT WAS PROVIDED. NO FURTHER NEEDS. SIDE RAILS UP X 2. BED IS LOW. CALL LIGHT IN REACH.
[2017-04-21 06:15] LABS: BASOPHILS 0.4 % (0-2); EOSINOPHILS 1.9 % (0-7); HEMATOCRIT 28.5 % (36.0-48.0); IMMATURE GRANULOCYTES 0.4 % (0-5); LYMPHOCYTES 16.9 % (15-50); MCH 35.3 pg (26.0-34.0); MCHC 35.1 g/dL (31.0-37.0); MCV 100.7 fL (80.0-100.0); MEAN PLATELET VOLUME 10.7 fL (7.4-10.4); MONOCYTES 16.9 % (2-11); NEUTROPHILS 63.5 % (40-80); PLATELET COUNT 52 10x3/uL (130-400); RBC 2.83 10x6/uL (4.00-5.40); RDW 15.9 % (11.5-14.5); WBC 5.3 10x3/uL (4.8-10.8)
[2017-04-21 06:20] LABS: INR 1.73 (0.85-1.17); PROTIME 20.2 SECONDS (11.6-15.0)
[2017-04-21 06:49] LABS: ALBUMIN 2.3 g/dL (3.4-5.0); ANION GAP 14.6 mmol/L (8-16); BILIRUBIN - TOTAL 3.24 mg/dL (0.2-1.3); CALCIUM 8.8 mg/dL (8.5-10.1); CARBON DIOXIDE 20.2 mmol/L (21.0-32.0); CREATININE - SERUM 1.2 mg/dL (0.6-1.3); POTASSIUM - SERUM 4.8 mmol/L (3.5-5.1); PROTEIN - SERUM 5.9 g/dL (6.4-8.2)
--- NOTE | 2017-04-21 07:40 | NUR ---
PT AOX4 RESP EVEN AND NONLABORED PT DENIES NEEDS AT THIS TIME IV TO RIGHT FOREARM PATENT AND INTACT AT THIS TIME SRX2 BED AT LOWEST POSITION CALL LIGHT WITHIN REACH WILL CONTINUE TO MONITOR
[2017-04-21 10:16] LABS: ALPHA FETOPROTEIN -(TUMOR MRK) 6.1 ng/mL (0.0-8.3); ANA REFLEX - ANTICHROMATIN ABS <0.2 AI (0.0-0.9); ANA REFLEX - CENTROMERE B ABS <0.2 AI (0.0-0.9); ANA REFLEX - DBL STRANDED DNA <1 IU/mL (0-9); ANA REFLEX - DIRECT Positive (Negative); ANA REFLEX - JO-1 AB <0.2 AI (0.0-0.9); ANA REFLEX - RNP ANTIBODIES 5.4 AI (0.0-0.9); ANA REFLEX - SCL-70 <0.2 AI (0.0-0.9); ANA REFLEX - SJOGRENS AB SSA <0.2 AI (0.0-0.9); ANA REFLEX - SJOGRENS AB SSB <0.2 AI (0.0-0.9); ANA REFLEX - SMITH AB <0.2 AI (0.0-0.9)
[2017-04-21 12:14] LABS: HEPATITIS C ANTIBODY <0.1 (0.0-0.9)
--- NOTE | 2017-04-21 15:05 | NUR ---
OT NOTE: PT WAS NAUSEATED IN AM; DID NOT FEEL GOOD IN PM DUE TO REPORTED PROCEDURE. WILL ATTEMPT AGAIN TOMORROW
--- NOTE | 2017-04-21 20:28 | NUR ---
DR. RIVERA HERE. DRSG. TO RIGHT HIP AREA DRY INTACT.DENIES NAUSEA AT PRESENT TIME WILL CONTINUE TO MONITOR FOR ANY CHGES.AND FOLLOW CURRENT PLAN OF CARE
--- NOTE | 2017-04-22 02:00 | NUR ---
PT RESTING IN BED WITH NO DISTRESS. RESPIRATIONS EVEN AND UNLABORED. SIDE RAILS X 2. BED IS LOW. CALL LIGHT IN REACH.
[2017-04-22 05:43] LABS: INR 1.74 (0.85-1.17); PROTIME 20.3 SECONDS (11.6-15.0)
[2017-04-22 05:47] LABS: ALBUMIN 2.4 g/dL (3.4-5.0); ANION GAP 12.6 mmol/L (8-16); BILIRUBIN - TOTAL 3.7 mg/dL (0.2-1.3); CALCIUM 9.3 mg/dL (8.5-10.1); CARBON DIOXIDE 19.8 mmol/L (21.0-32.0); CREATININE - SERUM 1.3 mg/dL (0.6-1.3); POTASSIUM - SERUM 5.4 mmol/L (3.5-5.1); PROTEIN - SERUM 6.3 g/dL (6.4-8.2)
[2017-04-22 06:03] LABS: BASOPHILS 0.4 % (0-2); EOSINOPHILS 0.9 % (0-7); HEMATOCRIT 28.9 % (36.0-48.0); HEMOGLOBIN 9.8 g/dL (12-16); IMMATURE GRANULOCYTES 0.9 % (0-5); LYMPHOCYTES 12.2 % (15-50); MCH 34.5 pg (26.0-34.0); MCHC 33.9 g/dL (31.0-37.0); MCV 101.8 fL (80.0-100.0); MEAN PLATELET VOLUME 10.3 fL (7.4-10.4); MONOCYTES 14.9 % (2-11); NEUTROPHILS 70.7 % (40-80); PLATELET COUNT 52 10x3/uL (130-400); RBC 2.84 10x6/uL (4.00-5.40); RDW 15.9 % (11.5-14.5); WBC 5.6 10x3/uL (4.8-10.8)
--- NOTE | 2017-04-22 08:05 | NUR ---
PT AOX4 RESP EVEN AND NONLABORED PT DENIES NEEDS AT THIS TIME IV TO RIGHT AC PATENT AND INTACT AT THIS TIME SRX2 BED AT LOWEST SETTING CALL LIGHT WITHIN REACH WILL CONTINUE TO MONITOR
[2017-04-22 09:33] VITALS: BP 121/40
--- NOTE | 2017-04-22 11:28 | NUR ---
Wound care consult: Pt has no chronic wounds. Left hip open area from bone bx. Dressing is clean, dry and intact. Will monitor as needed.
[2017-04-22] MEDS ORDERED: XIFAXAN550 MG PO (12:04)
[2017-04-22] MEDS ORDERED: MONODOX PO (12:16)
--- NOTE | 2017-04-22 13:09 | NUR ---
CM REASSESSMENT NOTE: PATIENT IS DISCHARGING TO IP REHAB TODAY.
[2017-04-22 13:40] VITALS: BP 143/48
--- NOTE | 2017-04-22 14:04 | NUR ---
OT NOTE: PT DOING MUCH BETTER THAN YESTERDAY. PT HAD JUST FINISHED LUNCH, NO FAMILY AVAILABLE. PT PERFORMED BED MOB INCLUDING ROLLING SIDE TO SIDE AND SUPINE TO SIT WITH SPV; ABLE TO AMB TO BATHROOM WITH SBA; PERFORMED TOILETING WITH SBA; SINK HYGIENE WITH SBA.
[2017-04-22 14:19] LABS: SMOOTH MUSCLE ABS (ACTIN) 38 Units (0-19)
--- NOTE | 2017-04-22 17:09 | NUR ---
OT NOTE: PT COMPLETED BED MOB AND ADL MOB WITH SBA. PT COMPLETED TOILETING TASKS WITH SBA. PT COMPLETED HYGIENE TASKS WITH SBA. THANK YOU, TONE TALBOT/Ori
[2017-04-22 17:15] VITALS: BP 104/40
--- NOTE | 2017-04-22 17:47 | NUR ---
IV DISCONTINUED WITH CATHETER INTACT AT THIS TIME PT GIVEN DISCHARGE INSTRUCTIONS AND TAKEN VIA WHEELCHAIR TO INPATIENT REHAB AT THIS TIME
--- NOTE | 2017-04-24 13:34 | CN ---
PATIENT NAME:STEPHANIE SAHA MEDICAL RECORD: [id number] : 54 LOCATION:[id number] ADMIT DATE: 04/16/17 ACCOUNT: [id number] CONSULTING PHYSICIAN: JAY LEACH MD REFERRING PHYSICIAN: SEBASTIEN CARLTON MD DATE OF CONSULTATION: 04/22/2017 Cardiology Consultation DATE OF SERVICE: 04/22/2017 DIAGNOSES: 1. Nonsustained ventricular tachycardia. 2. Tachycardia. 3. Hypertension. 4. Liver failure. 5. Mental status changes. HISTORY OF PRESENT ILLNESS: Ms. Saha presents with acute mental status changes. She has a history of liver disease, found to have a high ammonia level. She has been treated for this. She had an episode of nonsustained ventricular tachycardia. Previously to this admission, she was on Ziac 10/6.25. This has not been continued this admission. Her heart rate has been running in the 100+ range with sinus tachycardia. Since admission, her systolic blood pressure is in the 120-140 range. She is on lisinopril. This has been continued. PHYSICAL EXAMINATION: GENERAL APPEARANCE: Well-nourished, well-developed, appears stated age. Level of distress, comfortable. PSYCHIATRIC: Mental status, alert, normal affect. Orientation, oriented to time, place and person. EYES: Lids and conjunctiva, noninjected. No discharge, no pallor. ENT: Lips, teeth, gums, normal dentition. Oropharynx, no cyanosis, no pallor. NECK: Carotid arteries, bilateral normal upstroke, no bruits, no thrills. JUGULAR VEINS: No jugular venous pressure or distention. CERVICAL LYMPH NODES: Nontender, nonenlarged. THYROID: Not enlarged. Nontender. No nodules. LUNGS: Respiratory effort, unlabored. CHEST: Normal curvature. No thoracic deformity. No chest wall tenderness. Percussion, resonant. Auscultation, clear. No wheezes, no rales, no rhonchi. CARDIOVASCULAR: Precordial exam, nondisplaced. No heaves or pericardial thrills. Rate and rhythm, regular. Heart sounds, normal S1, normal S2. No S3, no gallop, no rub. Systolic murmur, not heard. Diastolic murmur, not heard. EXTREMITIES: No cyanosis, no edema. Peripheral pulses, full and equal in all extremities, except as noted. No bruits appreciated. ABDOMEN: Soft, nondistended. Normal aorta. No bruit. Nontender. No masses. Liver, nontender, no hepatomegaly. Spleen, nontender, no splenomegaly. MUSCULOSKELETAL: No joint tenderness. No joint swelling. No erythema. NEUROLOGICAL: Normal gait, normal strength, normal tone. SKIN: Warm and dry. OVERALL IMPRESSION: Would restart her beta carolyn. We will restart her Ziac . If her blood pressure is too low, we would discontinue lisinopril and use only the Ziac. This should treat the tachycardia as well as nonsustained CONSULT REPORT [id number] STEPHANIE SAHA ventricular tachycardia. No other cardiac workup treatment is necessary at this time. TRANSINT:[id number] Voice Confirmation ID: [id number] DOCUMENT ID: [id number] JAY LEACH MD at 1334 CC: [id number] DICTATION DATE: 04/22/17 1154 HEAD MACHINIST: 04/22/17 1841 DIS IN 04/22/17 [facility] [address] [place] [address]
== END 2017-04-22 17:50 | DRG 808 ==
LOC: D.ER 20:30 → D.MS 21:56
PROVIDERS: Emergency Medicine; Internal Medicine Gastroenterology; Internal Medicine Hematology & Oncology; Nurse Practitioner Acute Care; Psychiatry & Neurology Neurology; Radiology Diagnostic Radiology; ADMIT Emergency Medicine
PROC: 07DR3ZX Extraction of Iliac Bone Marrow, Percutaneous Approach, Diagnostic (ICD-10-PCS; principal; 2017-04-21 09:20)
DX: D61.818 Other pancytopenia (principal); G93.41 Metabolic encephalopathy; E72.20 Disorder of urea cycle metabolism, unspecified; R18.8 Other ascites; I85.10 Secondary esophageal varices without bleeding; N17.9 Acute kidney failure, unspecified; I47.2 Ventricular tachycardia; K72.90 Hepatic failure, unspecified without coma; K74.60 Unspecified cirrhosis of liver; E11.65 Type 2 diabetes mellitus with hyperglycemia; Z79.84 Long term (current) use of oral hypoglycemic drugs; I10 Essential (primary) hypertension; E03.9 Hypothyroidism, unspecified; R01.1 Cardiac murmur, unspecified; E87.5 Hyperkalemia

== ENCOUNTER 2017-04-22 17:55 | Inpatient (IN) | payer MEDICARE, MEDICAID ==
[~2017-04-22] VITALS: Ht 157.5 cm; Wt 84.8 kg
[~2017-04-22 17:55] MED LIST changes: +BAYER ASPIRIN325 MG PO; +DULCOLAX10 MG/SUPP RC; +LASIX40 MG; +LISINOPRIL10 MG PO; +MONODOX PO; +OCUFLOX 0.3 % OP5 ML RIGHT EYE; +OMNIPRED5 ML; +PROTONIX20 MG PO; +XIFAXAN550 MG PO
--- NOTE | 2017-04-22 19:00 | NUR ---
IN BED, LYING ON LEFT SIDE, EYES CLOSED. NO DISTRESS EVIDENT.
[2017-04-22 19:21] VITALS: BP 107/59; BMI 34.3
--- NOTE | 2017-04-22 21:00 | NUR ---
AWAKE. DENIES NEEDS AT THIS TIME.
--- NOTE | 2017-04-22 22:05 | NUR ---
HS MEDS GIVEN TO PATIENT. ALSO GAVE HER NORCO 5/325 X1 TAB PO FOR PAIN LEVEL OF 9/10 IN HER BACK. ASSISTED HER TO REPOSITION UP IN BED. DENIES FURTHER NEEDS.
--- NOTE | 2017-04-22 23:40 | NUR ---
ADMISSION ASSESSMENT AND HISTORY COMPLETE. ADMISSION DOCUMENTS SIGNED. ASSISTED PATIENT TO AMBULTATE TO BR TO URINATE AND THEN BACK TO BED. REMINDED HER TO CALL FOR ASSIST AND NOT TO ATTEMPTE OOB ALONE, ALTHOUGH SHE MAY BE STABLE ENOUGH TO DO SO. WILL DEFER TO P/T EVALUATION TOMORROW REGARDING POTENTIAL AD BRYAN ORDER FROM DR. GASTELUM. DENIES FURTHER NEEDS.
--- NOTE | 2017-04-23 00:40 | NUR ---
RESTING QUIETLY IN BED, EYES CLOSED.
--- NOTE | 2017-04-23 02:10 | NUR ---
RESTING IN BED ON LEFT SIDE. APPEARS COMFORTABLE.
--- NOTE | 2017-04-23 03:55 | NUR ---
RESTING QUIETLY IN BED, RESPIRATIONS UNLABORED.
--- NOTE | 2017-04-23 06:19 | NUR ---
GAVE PATIENT SCHEDULED PO MEDS. DENIES PAIN OR NEED TO URINATE. I WAS LEAVING ROOM PATIENT STATED SHE THOUGHT SHE NEEDED TO VOMIT. OBTAINED AN EMESIS BAG. ELEVATED PATIENT'S HOB TO 60 DEGREES. SO FAR NO EMESIS. SAYS THE URGE TO EMESIS IS BEGINNING TO SUBSIDE. MEDICATIONS HAVE STAYEDD DOWN SO FAR.
[2017-04-23 06:43] LABS: BASOPHILS 0.4 % (0-2); EOSINOPHILS 1.9 % (0-7); HEMATOCRIT 28.5 % (36.0-48.0); IMMATURE GRANULOCYTES 0.9 % (0-5); LYMPHOCYTES 11.9 % (15-50); MCH 35.1 pg (26.0-34.0); MCHC 35.1 g/dL (31.0-37.0); MEAN PLATELET VOLUME 9.9 fL (7.4-10.4); MONOCYTES 14.8 % (2-11); NEUTROPHILS 70.1 % (40-80); PLATELET COUNT 60 10x3/uL (130-400); RBC 2.85 10x6/uL (4.00-5.40); RDW 15.9 % (11.5-14.5)
[2017-04-23 07:00] LABS: WBC 7.5 10x3/uL (4.8-10.8)
[2017-04-23 07:08] LABS: ANION GAP 11.5 mmol/L (8-16); CALCIUM 8.9 mg/dL (8.5-10.1); CARBON DIOXIDE 24.7 mmol/L (21.0-32.0); CREATININE - SERUM 1.2 mg/dL (0.6-1.3); POTASSIUM - SERUM 5.2 mmol/L (3.5-5.1)
--- NOTE | 2017-04-23 08:10 | NUR ---
PT RESTING IN BED WITH EYES OPEN CALL LIGHT IN REACH NO PROBLEMS WILL MONITER
[2017-04-23 13:36] VITALS: Ht 157.5 cm; Wt 84.8 kg
--- NOTE | 2017-04-23 19:20 | NUR ---
RESTING IN BED ON RIGHT SIDE. NO EVIDENT DISCOMFORT.
--- NOTE | 2017-04-23 19:50 | NUR ---
RESTING QUIETLY, EYES CLOSED.
[2017-04-23 21:05] VITALS: BP 100/63
--- NOTE | 2017-04-23 21:05 | NUR ---
AWOKE PATIENT FOR ASSESSMENT AND HS MEDS, WHICH ARE NOW COMPLETE. DENIES PAIN OR OTHER NEEDS.
--- NOTE | 2017-04-23 22:20 | NUR ---
RESTING QUIETLY ON LEFT SIDE. APPEARS COMFORTABLE.
--- NOTE | 2017-04-24 00:15 | NUR ---
AWAKE. DENIES NEEDS.
--- NOTE | 2017-04-24 02:15 | NUR ---
PATIENT AWAKE. DENIES NEEDS.
--- NOTE | 2017-04-24 04:25 | NUR ---
RESTING IN BED, EYES CLOSED.
--- NOTE | 2017-04-24 06:05 | NUR ---
GAVE PATIENT HER SCHEDULED PO MEDS. DENIES NEEDS.
[2017-04-24 06:27] LABS: HEMATOCRIT 27.9 % (36.0-48.0); HEMOGLOBIN 9.8 g/dL (12-16); LYMPHOCYTES 10.1 % (15-50); MCH 34.9 pg (26.0-34.0); MCHC 35.1 g/dL (31.0-37.0); MCV 99.3 fL (80.0-100.0); MEAN PLATELET VOLUME 9.9 fL (7.4-10.4); NEUTROPHILS 71.3 % (40-80); PLATELET COUNT 58 10x3/uL (130-400); RBC 2.81 10x6/uL (4.00-5.40); RDW 17.3 % (11.5-14.5); WBC 8.3 10x3/uL (4.8-10.8)
[2017-04-24 06:28] LABS: ANION GAP 12.8 mmol/L (8-16); CALCIUM 8.7 mg/dL (8.5-10.1); CARBON DIOXIDE 22.1 mmol/L (21.0-32.0); POTASSIUM - SERUM 4.9 mmol/L (3.5-5.1)
[2017-04-24 06:29] LABS: CREATININE - SERUM 1.6 mg/dL (0.6-1.3)
--- NOTE | 2017-04-24 07:59 | NUR ---
PATIENT IS ALERT/ORIENT. SITTING UP IN BED TO EAT LUNCH. VOICES NO NEEDS AT THIS TIME. CALL LIGHT WITHIN REACH.
--- NOTE | 2017-04-24 08:11 | NUR ---
SITTING UP EATING BREAKFAST. DENIES NEEDS. CALL LIGHT IN REACH
[2017-04-24 09:03] VITALS: BP 90/43
--- NOTE | 2017-04-24 09:15 | NUR ---
DR Ilene GASTELUM IN NEW ORDERS RECEIVED.
--- NOTE | 2017-04-24 12:30 | NUR ---
PRN NORCO GIVEN FOR BIOPSY INCISION SITE PER PATIENT REQUEST
--- NOTE | 2017-04-24 13:46 | NUR ---
ICE PACK TO INCISION SITE PER PATIENT REQUEST
--- NOTE | 2017-04-24 15:48 | NUR ---
PATIENT RESTING IN BED. DENIES ANY PAIN/DISC AT THIS TIME
--- NOTE | 2017-04-24 19:20 | NUR ---
RESTING IN BED, EYES CLOSED.
[2017-04-24 20:27] VITALS: BP 87/27
--- NOTE | 2017-04-24 21:50 | NUR ---
FOUND PATIENT CLEANSING HERSELF AT BEDSIDE AFTER URINARY INCONTINENCE. CHANGED HER PINK BED PAD. DENIES NEED FOR FURTHER ASSISTANCE. ASSESSMENT AND HS MED COMPLETED. INTITIATED SUKHJINDER BED ALARM PATIENT IS NOT CALLING FOR ASSIST WHEN SHE NEEDS OOB.
--- NOTE | 2017-04-25 00:05 | NUR ---
RESTING QUIETLY ON RIGHT SIDE. NO DISTRESS NOTED.
--- NOTE | 2017-04-25 02:15 | NUR ---
IN BED ON LEFT SIDE, EYES CLOSED. WAS UP TO BR WITH ASSIST @ 0130.
--- NOTE | 2017-04-25 04:45 | NUR ---
RESTING IN BED ON LEFT SIDE. RESPIRING QUIETLY.
--- NOTE | 2017-04-25 06:15 | NUR ---
SET PATIENT UP TO CHANGE INTO CLOTHING APPROPRIATE FOR THERAPY.
--- NOTE | 2017-04-25 07:30 | NUR ---
PATIENT ALERT/ORIENT X4. CALL LIGHT WITHIN REACH. BED ALARM ON DUE TO PATIENT WILL GET OUT OF BED BY SELF. VOICES NO NEEDS AT THIS TIME.
[2017-04-25 08:00] VITALS: BP 104/50
--- NOTE | 2017-04-25 08:25 | NUR ---
PATIENT REFUSED SCHEDULED ZIAC. B/P 104/50.
--- NOTE | 2017-04-25 08:27 | NUR ---
PATIENT IN REHAB ROOM. WORKING WITH PHYSICAL THERAPIST. PRN NORCO GIVEN FOR BACK PAIN PER PATIENT REQUEST.
--- NOTE | 2017-04-25 10:37 | NUR ---
ACTIVE IN THERAPY.SITTING AT TABLE.FAMILY PRESENT.
--- NOTE | 2017-04-25 11:00 | NUR ---
PATIENT IN REHAB ROOM. WORKING WITH PHYSICAL THERAPIST. DENIES ANY PAIN/DISC AT THIS TIME.
--- NOTE | 2017-04-25 11:45 | NUR ---
PATIENT IN REHAB ROOM. WORKING WITH OCCUPATIONAL THERAPIST. DENIES ANY PAIN/DISC AT THIS TIME.
--- NOTE | 2017-04-25 15:43 | NUR ---
PATIENT BACK IN BED AFTER THERAPY. RESTING WELL. CALL LIGHT WITHIN REACH.
--- NOTE | 2017-04-25 16:31 | NUR ---
DR. Ilene GASTELUM INTO SEE PATIENT. NEW ORDERS RECEIVED.
--- NOTE | 2017-04-25 19:25 | NUR ---
PT. IN BED WITH HOB UP FOR COMFORT LYING ON HER LEFT SIDE. EYES CLOSED AND RESP. EVEN. PT. AWAKENS EASILY FOR ASSESSMENT. PT. REQUESTING STOOL SOFTENER OF SOME TYPE AND PAIN MEDICATION WITH NIGHT TIME MEDS. CALL LIGHT WITHIN REACH.
[2017-04-25 19:55] VITALS: BP 105/45
--- NOTE | 2017-04-25 23:03 | NUR ---
PT IN BED LYING ON HER LEFT SIDE WITH EYES CLOSED AND RESP. DEEP AND EVEN. CALL LIGHT WITHIN REACH.
--- NOTE | 2017-04-26 03:00 | NUR ---
PT. IN BED LYING ON HER LEFT SIDE WITH EYES CLOSED AND RESP. DEEP AND EVEN. CALL LIGHT WITHIN REACH.
--- NOTE | 2017-04-26 08:10 | NUR ---
SITTING UP ON SIDE OF BED EATING BREAKFAST.
[2017-04-26 08:31] VITALS: BP 84/31
--- NOTE | 2017-04-26 08:45 | NUR ---
PT RESTING IN BED WILL MONITER
--- NOTE | 2017-04-26 14:53 | NUR ---
PT RESTING IN BED WITH EYES OPEN CALL LIGHT IN REACH NO PROBLEMS WILL MONITER
--- NOTE | 2017-04-26 19:20 | NUR ---
PT. IN BED WITH HOB UP FOR COMFORT. ASSESSMENT COMPLETED. NO VOICED NEEDS AT THIS TIME. CALL LIGHT WITHIN REACH FOR ANY NEEDS.
--- NOTE | 2017-04-26 19:20 | NUR ---
PT. IN BED WITH HOB UP FOR COMFORT LYING ON HER LEFT SIDE. ASSESSMENT COMPLETED. NO VOICED NEEDS AT THIS TIME AND HER CALL LIGHT IS WITHIN REACH. BOYFRIED LEAVING AT THIS TIME.
[2017-04-26 19:50] VITALS: BP 103/50
--- NOTE | 2017-04-26 23:09 | NUR ---
PT. IN BED LYING ON HER RIGHT SIDE WITH EYES CLOSED AND RESP. DEEP AND EVEN. CALL LIGHT WITHIN REACH.
--- NOTE | 2017-04-27 03:06 | NUR ---
PT. IN BED WITH HOB UP FOR COMFORT WITH EYES CLOSED AND RESP. DEEP AND EVEN. CALL LIGHT WITHIN REACH.
[2017-04-27 06:06] LABS: HEMATOCRIT 24.9 % (36.0-48.0); HEMOGLOBIN 8.6 g/dL (12-16); MCH 35.5 pg (26.0-34.0); MCHC 34.5 g/dL (31.0-37.0); MCV 102.9 fL (80.0-100.0); MEAN PLATELET VOLUME 9.8 fL (7.4-10.4); RBC 2.42 10x6/uL (4.00-5.40); RDW 16.2 % (11.5-14.5); WBC 2.5 10x3/uL (4.8-10.8)
[2017-04-27 06:17] LABS: PLATELET COUNT 43 10x3/uL (130-400)
[2017-04-27 06:21] LABS: CALCIUM 8.6 mg/dL (8.5-10.1); CARBON DIOXIDE 22.9 mmol/L (21.0-32.0); CREATININE - SERUM 1.6 mg/dL (0.6-1.3)
[2017-04-27 06:22] LABS: ANION GAP 9.9 mmol/L (8-16); POTASSIUM - SERUM 5.8 mmol/L (3.5-5.1)
--- NOTE | 2017-04-27 07:17 | NUR ---
RESTING QUIETLY IN BED. NO S/S DISTRESS. CALL LIGHT IN REACH
[2017-04-27 07:27] LABS: EOSINOPHILS 2 % (0-7); LYMPHOCYTES 44 % (15-50); MONOCYTES 9 % (2-11); NEUTROPHILS 44 % (40-80); PLATELET ESTIMATE DECREASED
--- NOTE | 2017-04-27 08:45 | NUR ---
PT RESTING IN BED WITH EYES OPEN CALL LIGHT IN REACH WILL MONITER
[2017-04-27 08:59] VITALS: BP 100/31
--- NOTE | 2017-04-27 14:14 | NUR ---
PT RESTING IN BED WITH EYES OPEN CALL LIGHT IN REACH NO PROBLEMS WILL MONITER
--- NOTE | 2017-04-27 15:36 | NUR ---
Ask to see patient regarding discharge. Patient states she wants to go home tomorrow. She lives with her boyfriend and her daughter. One of the two will pick her up at discharge. She has a RW, W/C, cane and a shower chair at home. She denies the need for any additional DME. She has never used HH and does not feel she will need it this time. She uses [facility] pharmacy on [facility] for medications. Mikaela Yeh RN CM
--- NOTE | 2017-04-27 19:00 | NUR ---
IN BED, LYING ON LEFT SIDE, AWAKE. DENIES NEEDS. S.O. VISITING AT BEDSIDE.
--- NOTE | 2017-04-27 21:20 | NUR ---
RESTING IN BED, EYES CLOSED. NOW ON RIGHT SIDE. NO DISTRESS EVIDENT.
[2017-04-27 22:20] VITALS: BP 118/36
--- NOTE | 2017-04-27 22:20 | NUR ---
ASSESSMENT AND HS MEDS COMPLETE. PATIENT INITIALLY REFUSED LACTULOSE, SAYING THAT THE TASTE MADE HER VOMIT. REMINDED HER THAT HER AMMONIA LEVEL WAS QUITE HIGH AND THE ONLY ORAL MEDICATION THAT WILL BRING IT DOWN IS THE LACTULOSE. PATIENT RELENTED AND AGREED TO TAKE THE LACTULOSE. GAVE HER 6 OZS ORANGE JUICE TO WASH IT DOWN WITH. PATIENT STATED THIS WAS MUCH MORE PALATABLE. PATIENT REFUSED SHOWER SAYS THAT SHE IS GOING HOME TOMORROW.
--- NOTE | 2017-04-28 00:05 | NUR ---
RESTING QUIETLY ON RIGHT SIDE.
--- NOTE | 2017-04-28 02:15 | NUR ---
CONTINUES IN BED ON RIGHT SIDE, EYES CLOSED. NO DISTRESS EVIDENT.
--- NOTE | 2017-04-28 04:25 | NUR ---
ASSISTED PATIENT UP TO BR TO URINATE, AND THEN BACK TO BED.
--- NOTE | 2017-04-28 06:15 | NUR ---
GAVE PATIENT SCHEDULED PO MEDS. SET HER UP TO CHANGE GOWN AT HER LEISURE.
[2017-04-28 07:12] LABS: BASOPHILS 0.7 % (0-2); EOSINOPHILS 1.3 % (0-7); HEMATOCRIT 29.8 % (36.0-48.0); HEMOGLOBIN 10.1 g/dL (12-16); LYMPHOCYTES 20.2 % (15-50); MCH 35.2 pg (26.0-34.0); MCHC 33.9 g/dL (31.0-37.0); MCV 103.8 fL (80.0-100.0); MONOCYTES 16.6 % (2-11); NEUTROPHILS 61.2 % (40-80); RBC 2.87 10x6/uL (4.00-5.40); RDW 16.1 % (11.5-14.5)
[2017-04-28 07:23] LABS: PLATELET COUNT 55 10x3/uL (130-400)
--- NOTE | 2017-04-28 07:25 | NUR ---
LYING IN BED RESTING QUIELTY. OFFERS NO COMPLAINTS. CALL LIGHT IN REACH. WILL CONTINUE TO MONITOR
[2017-04-28 07:26] LABS: ANION GAP 14.4 mmol/L (8-16); CALCIUM 9.9 mg/dL (8.5-10.1); CARBON DIOXIDE 22.1 mmol/L (21.0-32.0); CREATININE - SERUM 1.5 mg/dL (0.6-1.3); POTASSIUM - SERUM 5.5 mmol/L (3.5-5.1)
[2017-04-28 08:00] VITALS: BP 101/33
[2017-04-28] MEDS ORDERED: LASIX20 MG PO (09:03)
[2017-04-28] MEDS ORDERED: CHRONULAC30 ML PO (09:04)
--- NOTE | 2017-04-28 09:05 | RHP ---
PATIENT: STEPHANIE SAHA MEDICAL RECORD: [id number] ACCOUNT: [id number] [id number] ADMISSION DATE: 04/22/17 REHABILITATION HISTORY AND PHYSICAL EXAMINATION POST ADMISSION PHYSICIAN EXAMINATION Post-Admission Physical Examination and History and Physical DATE OF ADMISSION: 04/22/2017 ADMITTING DIAGNOSIS: Hepatic encephalopathy. HISTORY OF PRESENT ILLNESS: The patient is admitted to inpatient rehab for neurologic condition of acute hepatic encephalopathy. She is a 66-year-old female who presented with acute mental status changes. She has got left-sided weakness and also oral stage dysphagia and cognitive linguistic deficits and had followed by speech therapy. She was found to have an elevated ammonia level. Note that the patient has been told she needed a liver transplant in years past. Prior history, she has cirrhosis secondary to fatty liver, nonalcoholic steatohepatitis. She has been followed by GI and has undergone a workup for oncology/hematology during her acute hospital stay due to anemia and thrombocytopenia. She has been transfused, her red blood cell count seems to be stable at this time. She lives with her daughter and her boyfriend that is deaf and communicates with sign language and writing. She was independent with her ADLs, moderate independent with use of a rolling walker prior to hospitalization. She is currently set up for moderate assist for ADLs and moderate assist for mobility. Her cognition somewhat cleared up, the ammonia level decreasing. She plans to return home with her daughter and boyfriend and hopefully get back to her prior level of functioning or better. COMORBIDITIES: Include dysphagia, pancytopenia, thrombocytopenia, neutropenia, acute hepatic encephalopathy, acute CVA, ascites, splenomegaly, cirrhosis, esophageal varices, kidney injury, mental status changes, hypothyroidism, chronic murmur, fatty liver and self-care deficit. PAST MEDICAL HISTORY: Significant for CVA, weakness, diabetes, hypothyroidism, hypertension and diarrhea. PAST SURGICAL HISTORY: Includes gallbladder and hysterectomy. ALLERGIES: MORPHINE AND CODEINE. CURRENT MEDICATIONS: Include Ziac daily, Aldactone 50 mg daily, potassium 20 mEq daily, Protonix 40 mg daily, Synthroid 75 mcg daily, Glucotrol 5 mg b.i.d. with meals, Lasix 40 mg daily, chewable aspirin 81 mg daily, [place] 5/325 one tab q.4 hours p.r.n., doxycycline 100 mg b.i.d., Xifaxan 550 mg b.i.d., Ocuflox eye drops, Dulcolax suppositories p.r.n., and polyethylene glycol 17 g in 8 ounces of water daily as needed. HABITS: No current alcohol or tobacco use. FAMILY HISTORY: Noncontributory. SOCIAL HISTORY: The patient hopes to return back home with the above. HISTORY AND PHYSICAL [id number] STEPHANIE SAHA REVIEW OF SYSTEMS: GENERAL: Does complain of weakness and fatigue. HEENT: Denies cold, cough or congestion. CARDIOVASCULAR: Denies chest pain. PHYSICAL EXAMINATION: VITAL SIGNS: Stable, afebrile. GENERAL: An elderly female in no acute distress, alert upon exam. HEENT: Normocephalic and atraumatic. Mucosa moist. NECK: Supple. No lymphadenopathy. LUNGS: Clear at this time. HEART: Regular rate and rhythm. ABDOMEN: Somewhat protuberant. EXTREMITIES: No clubbing, cyanosis or edema. NEUROLOGIC: Slow to mentate, but intact. LABORATORY DATA: White count 7.5, H&H of 10 and 28, and platelet count was noted to be 60,000. Her sodium is 131, potassium 5.2, BUN and creatinine of 22 and 1.2, and blood sugar is noted to be 128. ASSESSMENT: This is a 66-year-old female patient admitted to rehab with a working diagnosis of acute encephalopathy. The patient has potential to make improvement. We instituted the following multidisciplinary therapies including, but not limited to physical, occupational, respiratory, speech, nutritional services, prosthetics and orthotics. Given her complex condition and risk for more complications, rehabilitation services cannot be provided at a low level of care such as a fci facility. PLAN: 1. Admit to [facility] rehab for intensive inpatient therapy to include the following disciplines: A. Physical therapy to improve gait, all transfer skills and bed mobility to a modified independent level. B. Occupational therapy to improve activities of daily living to a modified independent level. C. Case management to assist with discharge planning and placement options. D. Nutrition to assist with nutritional needs. E. Rehabilitation nursing to assist in monitoring the patient's underlying medical condition and to assist with any type of bowel or bladder management. 2. The patient's current medication and medical care will be continued. 3. The patient will be placed on standard fall precautions. 4. We will monitor her ammonia levels during her stay. 5. I will follow up in a.m. TRANSINT:[id number] Voice Confirmation ID: [id number] DOCUMENT ID: [id number] JOSÉ LUIS notes whether there has been none or any medical/functional change since admission: - No change since prescreen. JOSÉ LUIS attests patient continues to be appropriate for IRF: - Continues to be appropriate. HISTORY AND PHYSICAL [id number] STEPHANIE SAHA SCOTT MD at 0905 CC: [id number] DICTATION DATE: 04/23/17 0850 BANQUET CAPTAIN: 04/23/17 0925 ADM IN [facility] [address] [id number]
--- NOTE | 2017-04-28 11:04 | NUR ---
SITTING UP IN BED WATCHING TV. OFFERS NO COMPLAINTS. CALL LIGHT IN REACH
--- NOTE | 2017-04-28 13:15 | NUR ---
REVIEWED DISCHARGE ORDERS AND MEDICATIONS WITH PATIENT. TRANSPORTED PT VIA W/C TO FRONT ACCOMPAINIED BY BOYFRIEND. OFFERS NO COMPLAINTS. COPY OF DC ORDERS GIVEN TO PATIENT, BOYFRIEND HAS PATIENT BELONGINGS.
== END 2017-04-28 14:41 | disposition home or self-care (01) | DRG 441 ==
LOC: D.REHAB 17:55
PROVIDERS: ADMIT Emergency Medicine
DX: K72.90 Hepatic failure, unspecified without coma (principal); I63.9 Cerebral infarction, unspecified; G93.41 Metabolic encephalopathy; D61.818 Other pancytopenia; R18.8 Other ascites; I85.10 Secondary esophageal varices without bleeding; N17.9 Acute kidney failure, unspecified; R41.82 Altered mental status, unspecified; R53.1 Weakness; R13.11 Dysphagia, oral phase; R41.89 Other symptoms and signs involving cognitive functions and awareness; K74.60 Unspecified cirrhosis of liver; D69.6 Thrombocytopenia, unspecified; D70.9 Neutropenia, unspecified; R16.1 Splenomegaly, not elsewhere classified; E03.9 Hypothyroidism, unspecified; R01.1 Cardiac murmur, unspecified; E11.65 Type 2 diabetes mellitus with hyperglycemia

== ENCOUNTER 2017-05-18 20:41 | Inpatient (IN) | payer MEDICARE, MEDICAID ==
[~2017-05-18] VITALS: Ht 157.5 cm; Wt 93.2 kg
[~2017-05-18 20:41] MED LIST changes: +CHRONULAC30 ML PO; +LASIX20 MG PO
[2017-05-18 21:05] LABS: BASOPHILS 0.2 % (0-2); EOSINOPHILS 1.6 % (0-7); HEMATOCRIT 32.9 % (36.0-48.0); HEMOGLOBIN 11.3 g/dL (12-16); IMMATURE GRANULOCYTES 0.2 % (0-5); LYMPHOCYTES 10.7 % (15-50); MCH 35.1 pg (26.0-34.0); MCHC 34.3 g/dL (31.0-37.0); MCV 102.2 fL (80.0-100.0); MEAN PLATELET VOLUME 10.3 fL (7.4-10.4); MONOCYTES 12.8 % (2-11); NEUTROPHILS 74.5 % (40-80); PLATELET COUNT 63 10x3/uL (130-400); RBC 3.22 10x6/uL (4.00-5.40); WBC 6.2 10x3/uL (4.8-10.8)
[2017-05-18 21:31] LABS: ALBUMIN 2.9 g/dL (3.4-5.0); ANION GAP 14.4 mmol/L (8-16); CALCIUM 9.3 mg/dL (8.5-10.1); CARBON DIOXIDE 19.7 mmol/L (21.0-32.0); CREATININE - SERUM 1.8 mg/dL (0.6-1.3); POTASSIUM - SERUM 5.1 mmol/L (3.5-5.1); PROTEIN - SERUM 7.3 g/dL (6.4-8.2)
[2017-05-18 23:46] LABS: APPEARANCE HAZY (CLEAR); BILIRUBIN NEGATIVE (NEGATIVE); COLOR DK YELLOW (YELLOW); GLUCOSE NEGATIVE (NEGATIVE); KETONE NEGATIVE (NEGATIVE); LEUKOCYTE ESTERASE TRACE (NEGATIVE); NITRITE NEGATIVE (NEGATIVE); PROTEIN NEGATIVE (NEGATIVE); SPECIFIC GRAVITY 1.025 (1.005-1.020); UROBILINOGEN NORMAL (NORMAL)
[2017-05-18 23:49] LABS: BACTERIA MODERATE /hpf (NONE SEEN); EPITHELIAL CELLS 0-5 /hpf (0-5); RED CELLS - URINE 0-5 /hpf (0-5); WHITE CELLS - URINE 0-5 /hpf (0-5)
--- NOTE | 2017-05-19 02:35 | NUR ---
RECIEVED PT TO FLOOR FROM ED. VSS. PT IS ALERT AND ORIENTED AND ABLE TO VERBALIZE NEEDS. IV IS PATENT AND FLUIDS ARE RUNNING PER ORDER. PT IS AMBULATORY WITH ASSISTANCE. PT STATES PAIN IS 10/10. NO NEEDS ARE VERBALIZED AT THIS TIME. WILL CONTINUE TO MONITOR. SIDE RAILS ARE UP X 2. BED IS IN LOWEST POSITION. CALL LIGHT IS WITHIN REACH.
--- NOTE | 2017-05-19 03:15 | NUR ---
ADMIT ASSESSMENT COMPLETED. PT STATES SHE WILL HAVE HER BRING A COPY OF HER CURRENT MEDICATIONS SO THE LIST MATCHES. NO NEEDS VOICED. WILL MONITOR. SIDE RAILS X 2. BED LOW. CALL LIGHT IN REACH.
[2017-05-19 03:35] VITALS: BP 127/49; BMI 35.4
[2017-05-19 04:00] VITALS: BP 123/56
--- NOTE | 2017-05-19 08:00 | NUR ---
AWAKE, DENIES NEEDS, NO DISTRESS NOTED, CALL LIGHT IN REACH, BED LOWEST POSITION, WILL CONTINUE TO MONITOR
[2017-05-19 08:26] VITALS: BP 130/51
[2017-05-19] MEDS ORDERED: CYMBALTA30 MG PO (08:35)
[2017-05-19] MEDS ORDERED: TOPAMAX50 MG PO (08:36)
[2017-05-19] MEDS ORDERED: LISINOPRIL10 MG PO (08:36)
[2017-05-19 10:28] LABS: BASOPHILS 0.2 % (0-2); EOSINOPHILS 1.2 % (0-7); HEMATOCRIT 31.8 % (36.0-48.0); HEMOGLOBIN 10.8 g/dL (12-16); IMMATURE GRANULOCYTES 0.2 % (0-5); LYMPHOCYTES 12.9 % (15-50); MCH 35.2 pg (26.0-34.0); MCV 103.6 fL (80.0-100.0); MEAN PLATELET VOLUME 9.8 fL (7.4-10.4); MONOCYTES 12.7 % (2-11); NEUTROPHILS 72.8 % (40-80); PLATELET COUNT 64 10x3/uL (130-400); RBC 3.07 10x6/uL (4.00-5.40); RDW 15.2 % (11.5-14.5); WBC 6.5 10x3/uL (4.8-10.8)
[2017-05-19 10:41] LABS: ALBUMIN 2.7 g/dL (3.4-5.0); BILIRUBIN - TOTAL 4.11 mg/dL (0.2-1.3); CALCIUM 8.2 mg/dL (8.5-10.1); CREATININE - SERUM 1.9 mg/dL (0.6-1.3); PROTEIN - SERUM 6.9 g/dL (6.4-8.2)
[2017-05-19 12:56] VITALS: BP 135/63
[2017-05-19 13:15] VITALS: Ht 157.5 cm; Wt 93.2 kg
--- NOTE | 2017-05-19 15:20 | NUR ---
PT AOX4 RESP EVEN AND NONLABORED PT DENIES NEEDS AT THIS TIME IV TO RIGHT WRIST PATENT AND INTACT PT HERE FOR HEPATIC ENCEPHALOPATHY FOR THIS VISIT SRX2 BED AT LOWEST SETTING CALL LIGHT WITHIN REACH WILL MONITOR
[2017-05-19 16:27] VITALS: BP 130/60; BP 99/46
--- NOTE | 2017-05-19 19:30 | NUR ---
RECIEVED SHIFT REPORT. PT IS LYING IN BED. ALERT AND ORIENTED AND ABLE TO VERBALIZE NEEDS. IV IS PATENT AND FLUIDS ARE RUNNING PER ORDER. PT IS ABMULATORY WITH ASSISTANCE. PT STATES PAIN IS 9/10. NO NEEDS ARE VERBALIZED AT THIS TIME. WILL CONTINUE TO MONITOR. SIDE RAILS ARE UP X 2. BED IS IN LOWEST POSITION. CALL LIGHT IS WITHIN REACH.
[2017-05-19 20:00] VITALS: BP 121/47
--- NOTE | 2017-05-19 20:13 | NUR ---
SHIFT ASSESSMENT COMPLETED. NIGHT MEDS GIVEN WITH NO PROBLEMS. PT C/O PAIN 05/10. ADMINISTERED PRESCRIBED PRN ULTRAM PER ORDER. DENIES NEEDS. WILL MONITOR. SIDE RAILS X 2. BED LOW. CALL LIGHT IN REACH.
[2017-05-20 04:00] VITALS: BP 144/55
[2017-05-20 05:00] VITALS: BP 133/52
[2017-05-20 06:27] LABS: ALBUMIN 2.4 g/dL (3.4-5.0); ANION GAP 14.2 mmol/L (8-16); BILIRUBIN - TOTAL 3.8 mg/dL (0.2-1.3); CALCIUM 8.1 mg/dL (8.5-10.1); CARBON DIOXIDE 17.6 mmol/L (21.0-32.0); POTASSIUM - SERUM 4.8 mmol/L (3.5-5.1); PROTEIN - SERUM 6.1 g/dL (6.4-8.2)
[2017-05-20 06:31] LABS: CREATININE - SERUM 1.3 mg/dL (0.6-1.3)
--- NOTE | 2017-05-20 07:00 | NUR ---
REPORT RECIEVED ASSUMED CARE. PATIENT IN BED WITH EYES CLOSED RESTING QUIETLY. IV INTACT. CALL LIGHT WITHIN REACH.
[2017-05-20 07:05] LABS: BASOPHILS 0.4 % (0-2); EOSINOPHILS 3.8 % (0-7); HEMATOCRIT 29.9 % (36.0-48.0); HEMOGLOBIN 10.2 g/dL (12-16); IMMATURE GRANULOCYTES 0.2 % (0-5); LYMPHOCYTES 14.2 % (15-50); MCH 35.3 pg (26.0-34.0); MCHC 34.1 g/dL (31.0-37.0); MCV 103.5 fL (80.0-100.0); MEAN PLATELET VOLUME 10.3 fL (7.4-10.4); MONOCYTES 12.1 % (2-11); NEUTROPHILS 69.3 % (40-80); PLATELET COUNT 55 10x3/uL (130-400); RBC 2.89 10x6/uL (4.00-5.40); RDW 15.1 % (11.5-14.5)
[2017-05-20 07:11] LABS: WBC 4.8 10x3/uL (4.8-10.8)
[2017-05-20 08:02] VITALS: BP 147/60
[2017-05-20 12:19] VITALS: BP 93/42
[2017-05-20 15:46] VITALS: BP 118/59
--- NOTE | 2017-05-20 18:41 | NUR ---
PATIENT IN BED WITH EYES CLOSED RESTING QUIETLY AT THIS TIME. IV INTACT. CALL LIGHT WITHIN REACH.
[2017-05-20 20:00] VITALS: BP 128/49
--- NOTE | 2017-05-21 06:32 | NUR ---
CHECKED FSBS BECAUSE PATIENT HAS A SCHEDULED GLUCOTROL. FS GLUCOSE 43. GAVE PATIENT 8OZ OF APPLE JUICE AND 2 SUJATHA CRACKERS WITH PEANUT BUTTER SPREAD BETWEEN IT. PATIENT DOES NOT WANT TO EAT ANYTHING, BUT AGREED TO THE SUJATHA CRACKERS AND PEANUT BUTTER. SHE IS EATING AT THIS TIME, AND HAS DRANK 2OZ OF APPLE JUICE. WILL KEEP TRYING TO ENCOURAGE PATIENT TO DRINK MORE APPLE JUICE. PATIENT DENIES ANY FOODS OR DRINKS THAT SOUND APPEALING.
[2017-05-21 06:35] LABS: BASOPHILS 0.4 % (0-2); EOSINOPHILS 4.3 % (0-7); HEMATOCRIT 29.6 % (36.0-48.0); HEMOGLOBIN 10.1 g/dL (12-16); IMMATURE GRANULOCYTES 0.4 % (0-5); MCH 35.3 pg (26.0-34.0); MCHC 34.1 g/dL (31.0-37.0); MCV 103.5 fL (80.0-100.0); MEAN PLATELET VOLUME 9.4 fL (7.4-10.4); MONOCYTES 11.6 % (2-11); NEUTROPHILS 69.3 % (40-80); PLATELET COUNT 56 10x3/uL (130-400); RBC 2.86 10x6/uL (4.00-5.40); RDW 15.2 % (11.5-14.5); WBC 5.6 10x3/uL (4.8-10.8)
[2017-05-21 06:53] LABS: ALBUMIN 2.2 g/dL (3.4-5.0); ANION GAP 13.1 mmol/L (8-16); BILIRUBIN - TOTAL 3.18 mg/dL (0.2-1.3); CALCIUM 7.6 mg/dL (8.5-10.1); CARBON DIOXIDE 19.6 mmol/L (21.0-32.0); CREATININE - SERUM 1.2 mg/dL (0.6-1.3); PROTEIN - SERUM 6.1 g/dL (6.4-8.2)
[2017-05-21 06:54] LABS: POTASSIUM - SERUM 3.7 mmol/L (3.5-5.1)
--- NOTE | 2017-05-21 08:00 | NUR ---
ASSESSMENT PER FLOW SHEET.PT WITHOUT DISTRESS.DENIES NEEDS.VERY SLEEPY THIS AM.FALL PREVENTION IN PLACE WITH BED ALARM.
[2017-05-21 08:21] VITALS: BP 117/52
--- NOTE | 2017-05-21 08:22 | NUR ---
CALL TO DR. FLIP REECE. CRITICAL AMMONIA OF 82 PER AM LABS
--- NOTE | 2017-05-21 10:30 | NUR ---
Patient Name: STEPHANIE SAHA Admission Status: ER Accout number: [id number] Admission Date: 05-19-2017 : 1950 Admission Diagnosis:HEPATIC FAILURE, UNSPECIFIED WITHOUT COMA Attending: OMAR CASTELAN Current LOS: 2 Anticipated DC Date: 05-25-2017 Planned Disposition: Home Primary Insurance: MEDICARE A & B Discharge Planning Comments: CM MET WITH PATIENT REGARDING D/C NEEDS AND PLANS. PATIENT STATED SHE LIVES WITH HER BOYFRIEND (EDILIA) AND HE WILL DRIVE HER HOME AT DISCHARGE. THERE IS A RAMP TO ENTER HOME AND NO STAIRS INSIDE. PATIENT STATED SHE IS USUALLY INDEPENDENT WITH HER CARE AND HAS A WALKER, WHEELCHAIR, SHOWER CHAIR, AND GLUCOMETER AT HOME. PATIENT SEES [facility] WITH THE [place] [place] AND USES [facility] [address] PATIENT STATED SHE DOES NOT WANT OR NEED HOME HEALTH AT THIS TIME. CM WILL CONTINUE TO FOLLOW PATIENT WITH D/C NEEDS AND PLANS. PCP DR. [facility] [place] ([facility]) [facility] [address] [phone] EDILIA BUCK (NATHAN) [phone] Manager Intermediate: Jen Olmedo Is the patient Alert and Oriented? Yes 0 * How many steps to enter\exit or inside your home? RAMP 0 * PCP [facility] [place] 0 * Pharmacy [facility] [address] [facility] [phone] * Preadmission Environment Home with Family 0 * ADLs Independent 0 * Equipment Glucometer Shower Chair Walker Wheelchair 0 * List name and contact numbers for known caregivers / representatives who currently or will assist patient after discharge: EDILIA BUCK (NATHAN) [phone] * Community resources currently utilized None 0 * Additional services required to return to the preadmission environment? Yes 0 * Can the patient safely return to the preadmission environment? Yes 0 * Has this patient been hospitalized within the prior 30 days at any hospital? Yes 0 Grand Total: 0
[2017-05-21 12:17] VITALS: BP 117/62
[2017-05-21 15:43] LABS: CHOL - HDL RATIO 2.7 ratio (2.3-4.1); LDL-HDL RATIO 1.3 ratio (1.5-3.5)
[2017-05-21 16:02] VITALS: BP 121/45
[2017-05-21 20:00] VITALS: BP 147/63
--- NOTE | 2017-05-21 21:40 | NUR ---
FSBS 64. EXPLAINED TO PATIENT THAT IT IS IMPORTANT FOR HER TO EAT A SNACK SINCE HER BLOOD SUGAR IS LOW, AND SHE IS NPO AFTER MIDNIGHT. GAVE PATIENT HER LACTULOSE MIXED IN APPLEJUICE, PER HER REQUEST. SHE DRANK ALL OF IT. GAVE HER 2 SUJATHA CRACKERS WITH PEANUT BUTTER SPREAD BETWEEN THEM, AND A MILK.
--- NOTE | 2017-05-21 22:00 | NUR ---
PATIENT FINISHED ALL OF HER SNACK AND MILK.
[2017-05-22] VITALS: BP 121/46
--- NOTE | 2017-05-22 01:26 | NUR ---
PATIENT IS RESTING QUIETLY WITH EYES CLOSED. NO SIGNS OF DISTRESS NOTED. WOKE PATIENT UP TO CHECK HER BLOOD SUGAR, SINCE SHE HAS BEEN RUNNING LOW AND IS NOW NPO. SHE AROUSED EASILY. FSBS 134. BED IN LOWEST POSITION, CALL LIGHT IN REACH. BED RIALS UP X'S 2.
[2017-05-22 04:00] VITALS: BP 131/52
[2017-05-22 05:52] LABS: BASOPHILS 0.3 % (0-2); EOSINOPHILS 4.1 % (0-7); HEMATOCRIT 29.1 % (36.0-48.0); IMMATURE GRANULOCYTES 0.5 % (0-5); LYMPHOCYTES 15.1 % (15-50); MCH 35.3 pg (26.0-34.0); MCHC 34.4 g/dL (31.0-37.0); MCV 102.8 fL (80.0-100.0); MEAN PLATELET VOLUME 9.7 fL (7.4-10.4); MONOCYTES 14.9 % (2-11); NEUTROPHILS 65.1 % (40-80); PLATELET COUNT 51 10x3/uL (130-400); RBC 2.83 10x6/uL (4.00-5.40); RDW 15.4 % (11.5-14.5)
[2017-05-22 05:53] LABS: WBC 3.7 10x3/uL (4.8-10.8)
[2017-05-22 06:03] LABS: INR 1.88 (0.85-1.17); PROTIME 21.6 SECONDS (11.6-15.0)
[2017-05-22 06:07] LABS: ALBUMIN 2.1 g/dL (3.4-5.0); ANION GAP 11.6 mmol/L (8-16); BILIRUBIN - TOTAL 2.7 mg/dL (0.2-1.3); CALCIUM 7.6 mg/dL (8.5-10.1); CARBON DIOXIDE 18.9 mmol/L (21.0-32.0); POTASSIUM - SERUM 3.5 mmol/L (3.5-5.1)
[2017-05-22 08:32] VITALS: BP 139/60
--- NOTE | 2017-05-22 09:03 | NUR ---
ASSESSMENT PER FLOW SHEET.PT WITHOUT DISTRESS.WHEEZES HEARD BILATERALLY IN LUNG CUELLAR.NPO FOR US ORDERED.FALL PREVENTION IN PLACE WITH BED ALARM ON AND FUNCTIONING.CALL LIGHT IN REACH
--- NOTE | 2017-05-22 10:25 | NUR ---
CHART REVIEWED. PT ON RENAL ADA DIET. LABS REVIEWED. HAS HAD POOR PO INTAKE. WILL CHANGE DIET TO REG ADA. RD FOLLOWING
[2017-05-22 12:12] VITALS: BP 131/46
[2017-05-22 16:04] VITALS: BP 119/50
--- NOTE | 2017-05-22 19:40 | NUR ---
REMAINS WITHOUT NEEDS,WITHOUT CHANGE.CONT PLAN OF CARE
[2017-05-22 20:00] VITALS: BP 130/82
[2017-05-23] VITALS: BP 120/60
--- NOTE | 2017-05-23 | NUR ---
PATIENT HAD A LARGE INCONTINENT BOWEL MOVEMENT IN THE BED. COMPUTER AIDED DESIGN OPERATOR ASSISTED PATIENT WITH A BATH AND CHANGING HER LINENS.
--- NOTE | 2017-05-23 03:00 | NUR ---
PATIENT HAD A LARGE INCONTINENT VOID. UNABLE TO BE MEASURED. IT SOAKED THROUGHT THE DEPENDS AND THE PAD ON THE BED. ASSISTED PATIENT TO THE BATHROOM, SHE HAD A BOWEL MOVEMENT. CHANGED HER LINENS. ASSISTED PATIENT CHANGING HER DEPENDS AND GETTING BACK IN BED. BED ALARM ON, NON-SKID SOCKS ON. PATIENT DENIES NEEDS.
[2017-05-23 04:00] VITALS: BP 134/59
[2017-05-23 05:29] LABS: BASOPHILS 0.4 % (0-2); EOSINOPHILS 4.8 % (0-7); HEMOGLOBIN 10.6 g/dL (12-16); IMMATURE GRANULOCYTES 0.8 % (0-5); MCH 35.2 pg (26.0-34.0); MCHC 34.2 g/dL (31.0-37.0); MEAN PLATELET VOLUME 9.5 fL (7.4-10.4); PLATELET COUNT 60 10x3/uL (130-400); RBC 3.01 10x6/uL (4.00-5.40); RDW 15.9 % (11.5-14.5)
[2017-05-23 05:31] LABS: WBC 5.3 10x3/uL (4.8-10.8)
[2017-05-23 05:49] LABS: INR 1.87 (0.85-1.17); PROTIME 21.5 SECONDS (11.6-15.0)
[2017-05-23 06:05] LABS: ALBUMIN 2.3 g/dL (3.4-5.0); ANION GAP 11.8 mmol/L (8-16); BILIRUBIN - TOTAL 2.7 mg/dL (0.2-1.3); CALCIUM 8.3 mg/dL (8.5-10.1); CARBON DIOXIDE 18.8 mmol/L (21.0-32.0); CREATININE - SERUM 1.2 mg/dL (0.6-1.3); POTASSIUM - SERUM 3.6 mmol/L (3.5-5.1); PROTEIN - SERUM 6.4 g/dL (6.4-8.2)
[2017-05-23 06:13] LABS: ALPHA FETOPROTEIN -(TUMOR MRK) 5.9 ng/mL (0.0-8.3)
--- NOTE | 2017-05-23 07:00 | NUR ---
REPORT RECIEVED ASSUMED CARE. PATIENT IN BED WITH IV INTACT. NO COMPLAINTS AT THIS TIME. CALL LIGHT WITHIN REACH.
--- NOTE | 2017-05-23 07:00 | NUR ---
REPORT RECIEVED ASSUMED CARE. PATIENT IN BED WITH IV INTACT. NO COMPLAINTS AT THIS TIME. EYES CLOSED RESTING QUIETLY. CALL LIGHT WITHIN REACH.
[2017-05-23 08:40] VITALS: BP 158/52
--- NOTE | 2017-05-23 08:45 | NUR ---
ASSESSMENT COMPLETE, VS STABLE. NO COMPLAINTS AT THIS TIME. IV INTACT. PATIENT IS SHAKEY AND WEAK. BS WNL. BP WNL. STATED SHE WAS JUST COLD. COVERED PATIENT UP AT THIS TIME. WILL CONTINUE TO MONITOR.
--- NOTE | 2017-05-23 10:30 | NUR ---
PATIENT UP TO BR AT THIS TIME. VOIDED AND BM. UNABLE TO MEASURE URINE DUE TO PATIENT BEING INCONTINENT DUE TO LASIX. BM WATERY 1000 ML. WILL CONTINUE TO MONITOR.
[2017-05-23 12:10] LABS: HEPATITIS C ANTIBODY <0.1 (0.0-0.9)
[2017-05-23 12:39] VITALS: BP 136/58
--- NOTE | 2017-05-23 15:00 | NUR ---
PATIENT IN BED WITH IV INTACT. ATE SMALL AMOUNT OF LUNCH. NO COMPLAINTS AT THIS TIME. STATED SHE JUST DOESNT FEEL GOOD. FAMILY AT BEDSIDE. CALL LIGHTW ITHIN NGUYEN.
[2017-05-23 16:51] VITALS: BP 135/59
--- NOTE | 2017-05-23 17:45 | NUR ---
PATIENT UP TO BR. INCONTINENT AGAIN BUT BM MEASURED 1000. WATERY AGAIN. PATIENT IV INTACT. CALL LIGHT WITHIN REACH.
--- NOTE | 2017-05-23 18:55 | NUR ---
PATIENT IN BED WITH IV INTACT. NO COMPLAINTS OR SIGNS OF DISTRESS. EYES CLOSED RESTING QUIETLY. CALL LIGHT WITHIN REACH.
[2017-05-23 19:23] VITALS: BP 186/55
[2017-05-23 20:18] LABS: APPEARANCE CLEAR (CLEAR); BILIRUBIN NEGATIVE (NEGATIVE); COLOR YELLOW (YELLOW); GLUCOSE NEGATIVE (NEGATIVE); KETONE NEGATIVE (NEGATIVE); LEUKOCYTE ESTERASE NEGATIVE (NEGATIVE); NITRITE NEGATIVE (NEGATIVE); PROTEIN NEGATIVE (NEGATIVE); UROBILINOGEN NORMAL (NORMAL)
[2017-05-24] VITALS: BP 141/53
--- NOTE | 2017-05-24 02:55 | NUR ---
PT SLEEPING. RESP EASY, UNLABORED. NO DISTRESS NOTED. CONTINUE KITCHEN OPERATOR'S PLAN OF CARE.
[2017-05-24 04:00] VITALS: BP 133/53
[2017-05-24 05:32] LABS: BASOPHILS 0.3 % (0-2); EOSINOPHILS 5.3 % (0-7); HEMATOCRIT 27.9 % (36.0-48.0); HEMOGLOBIN 9.8 g/dL (12-16); LYMPHOCYTES 20.3 % (15-50); MCH 35.9 pg (26.0-34.0); MCHC 35.1 g/dL (31.0-37.0); MCV 102.2 fL (80.0-100.0); MEAN PLATELET VOLUME 9.8 fL (7.4-10.4); MONOCYTES 14.3 % (2-11); NEUTROPHILS 59.8 % (40-80); RBC 2.73 10x6/uL (4.00-5.40); RDW 15.8 % (11.5-14.5)
[2017-05-24 05:37] LABS: PLATELET COUNT 48 10x3/uL (130-400)
[2017-05-24 05:46] LABS: INR 1.94 (0.85-1.17); PROTIME 22.2 SECONDS (11.6-15.0)
[2017-05-24 05:48] LABS: ALBUMIN 2.2 g/dL (3.4-5.0); ANION GAP 10.8 mmol/L (8-16); BILIRUBIN - TOTAL 2.4 mg/dL (0.2-1.3); CALCIUM 8.6 mg/dL (8.5-10.1); CARBON DIOXIDE 20.6 mmol/L (21.0-32.0); POTASSIUM - SERUM 3.4 mmol/L (3.5-5.1); PROTEIN - SERUM 5.9 g/dL (6.4-8.2)
--- NOTE | 2017-05-24 07:55 | NUR ---
SLEEPING, NO DISTRESS NOTED, BREATHING EVEN UNLABORED, CALL LIGHT IN REACH, BED LOWEST POSITON, WILL CONTINUE TO MONITOR
--- NOTE | 2017-05-24 07:55 | NUR ---
DR. CASTELAN NOTIFIED OF PLATELETS 48. NO NEW ORDERS REC'D.
[2017-05-24 10:11] VITALS: BP 146/47
[2017-05-24 12:43] VITALS: BP 115/43
--- NOTE | 2017-05-24 19:30 | NUR ---
RECIEVED SHIFT REPORT. PT IS LYING IN BED. ALERT AND ORIENTED AND ABLE TO VERBALIZE NEEDS. IV IS PATENT AND FLUIDS ARE RUNNING PER ORDER. PT IS AMBULATORY WITH ASSISTANCE. PT DENIES ANY PAIN AT THIS TIME. NO NEEDS ARE VERBALIZED AT THIS TIME. WILL CONTINUE TO MONITOR. SIDE RAILS ARE UP X 2. BED IS IN LOWEST POSITION. CALL LIGHT IS WITHIN REACH.
[2017-05-24 20:00] VITALS: BP 142/54
--- NOTE | 2017-05-24 21:19 | NUR ---
SHIFT ASSESSMENT COMPLETED. NIGHT MEDS GIVEN WITH NO PROBLEMS. PT RECIEVED NO INSULIN PER SLIDING SCALE FOR [id number]. NO NEEDS ARE VOICED. WILL MONITOR. SIDE RAILS X 2. BED LOW. CALL LIGHT IN REACH.
[2017-05-25] VITALS: BP 147/52
[2017-05-25 04:00] VITALS: BP 144/56
--- NOTE | 2017-05-25 07:05 | NUR ---
REPORT RECIEVED, ASSUMED CARE OF PT. RESTING WITH EYES SHUT, NO COMPLAINTS AT THIS TIME. BED ALARM ON, BED IN LOWEST POSITION, SIDE RAILS UP X 2, CALL LIGHT WITHIN REACH.
[2017-05-25 08:43] VITALS: BP 147/64
[2017-05-25] MEDS ORDERED: XIFAXAN550 MG PO (09:10)
--- NOTE | 2017-05-25 09:37 | NUR ---
CM REASSESSMENT NOTE: PATIENT IS DISCHARGING HOME WITH [facility]/SIGNED JIMI FORM. PATIENTS BOYFRIEND (EDILIA) IS DRIVING HER HOME. [facility] HAS BEEN NOTIFIED. PATIENT HAD NO OTHER NEEDS FOR DISCHARGE. [facility] SERVED
[2017-05-25 13:13] LABS: MITOCHONDRIAL ANTIBODY 6.6 Units (0.0-20.0); SMOOTH MUSCLE ABS (ACTIN) 27 Units (0-19)
--- NOTE | 2017-05-25 14:37 | NUR ---
PATIENT IV REMOVED WITH CATH TIP INTACT. PATIENT BEING DISCHARGED. CALL LIGHT WITHIN REACH.
--- NOTE | 2017-05-25 15:01 | NUR ---
PT DISCHARGE INSTRUCTIONS GIVEN, SIGNED AND VERBALIZED UNDERSTANDING. AT BEDSIDE. TRANSPORTED TO PERSONAL VEHICLE VIA WHEELCHAIR WITH HOSPITAL STAFF. PERSONAL BELONGINGS WITH PT.
--- NOTE | 2017-05-26 20:03 | HP ---
PATIENT: STEPHANIE SAHA MEDICAL RECORD: [id number] ACCOUNT: [id number] LOCATION:[id number] : [birth year] ADMISSION DATE: 05/19/17 HISTORY AND PHYSICAL EXAMINATION DATE OF ADMISSION: 05/19/2017 CHIEF COMPLAINT: Nausea and vomiting for 3 weeks, right upper quadrant abdominal pain, hepatic encephalopathy. HISTORY OF PRESENT ILLNESS: This is a 66-year-old female, who was here on unassigned call. She has had these problems before. She was seen in the Emergency Department. Her creatinine is a little high at 1.8. Her total bilirubin is 4.0. Her ammonia level was 115. She is admitted for metabolic encephalopathy, thrombocytopenia. PAST MEDICAL AND SURGICAL HISTORY: She has cirrhosis and it has been said that she was in need of a liver transplant. She has had a history of stroke, diabetes, hypothyroidism, and hypertension. PAST SURGICAL HISTORY: Cholecystectomy and hysterectomy. ALLERGIES: MORPHINE AND CODEINE. SOCIAL HISTORY: Lives with the significant other. No tobacco or alcohol. FAMILY HISTORY: Lung disease in her parents, sibling with diabetes. MEDICATIONS: Home medications reportedly were Xifaxan 500 mg twice a day, but I am not sure that she is still taking that; Lasix 40 mg a day; Aldactone 50 mg a day; Ziac 10/6.25 mg a day; glipizide 5 mg twice a day; potassium 20 mEq once a day; levothyroxine 50 mcg once a day; aspirin 81 mg once a day; Dulcolax p.r.n. constipation; Protonix once a day. Her [facility]. REVIEW OF SYSTEMS: GENERAL: No major weight changes. HEENT: No particular sinus or allergy problems. RESPIRATORY: No history of emphysema or asthma. CARDIAC: No history of coronary artery disease. GASTROINTESTINAL: With cirrhosis and chronic varices. I believe she has seen Dr. Bauer in the past and had evaluation there. She has had some low platelets and had a bone marrow biopsy by Dr. Abernathy in the last admission or two. MUSCULOSKELETAL: No significant arthritis. NEUROLOGIC: She has had a stroke in the past. No history of migraines. PSYCHIATRIC: No known depression or melancholia. PHYSICAL EXAMINATION: VITAL SIGNS: Temperature 98.7, pulse 65, respirations 20, blood pressure 161/75. GENERAL: She is awake and alert. She is complaining of some low back pain actually. HEENT: Grossly within normal limits. NECK: Supple. No JVD or bruit. HEART: Regular rate and rhythm without murmur. HISTORY AND PHYSICAL [id number] MARIA ASTEPHANIE LUNGS: Clear. ABDOMEN: With mild diffuse abdominal pain. No guarding, no rebound, no mass. EXTREMITIES: No edema. BACK: Mild tenderness in the lumbar area. LABORATORY WORK: Her basic metabolic panel showed sodium of 136, potassium 5.1, chloride 107, CO2 of 19.7, BUN 30, creatinine 1.8, glucose 149, and calcium 9.3. Total bilirubin is 4.0, AST 62, ALT 36, alkaline phosphatase 152, albumin is low at 2.9. CBC with a white count of 6200, hemoglobin 11.3, hematocrit 32.9 with an MCV of 102. Ammonia level 115. UA: Dark, yellow, hazy, trace blood, trace leukocyte esterase, moderate bacteria. ASSESSMENT: 1. Metabolic encephalopathy. 2. Anemia. 3. Cirrhosis - nonalcoholic steatohepatitis. PLAN: Give IV fluids, lactulose. Other tests and procedures as warranted. TRANSINT:[id number] Voice Confirmation ID: [id number] DOCUMENT ID: [id number] OMAR CASTELAN MD at 2002 CC: [id number] DICTATION DATE: 05/20/17 1334 BROADCAST OPERATIONS MANAGER: 05/20/17 1418 DIS IN 05/25/17 [id number] [place] [address]
== END 2017-05-25 15:03 | disposition home health service (06) | DRG 442 ==
LOC: D.ER 20:41 → D.MS 05-19 00:39
PROVIDERS: Family Medicine; Internal Medicine Gastroenterology; Physician Assistant Medical; ADMIT Family Medicine
DX: K72.90 Hepatic failure, unspecified without coma (principal); E72.20 Disorder of urea cycle metabolism, unspecified; D61.818 Other pancytopenia; R18.8 Other ascites; K74.60 Unspecified cirrhosis of liver; K75.81 Nonalcoholic steatohepatitis (NASH); E11.65 Type 2 diabetes mellitus with hyperglycemia; E03.9 Hypothyroidism, unspecified; I10 Essential (primary) hypertension; D64.9 Anemia, unspecified

== ENCOUNTER 2017-06-01 14:56 | Inpatient (IN) | payer MEDICARE, MEDICAID ==
[~2017-06-01 14:56] MED LIST changes: +CYMBALTA30 MG PO; +TOPAMAX50 MG PO
[2017-06-01 15:24] LABS: BASOPHILS 0.2 % (0-2); EOSINOPHILS 3.8 % (0-7); HEMATOCRIT 29.8 % (36.0-48.0); HEMOGLOBIN 10.3 g/dL (12-16); MCH 35.2 pg (26.0-34.0); MCHC 34.6 g/dL (31.0-37.0); MCV 101.7 fL (80.0-100.0); MEAN PLATELET VOLUME 10.9 fL (7.4-10.4); MONOCYTES 16.6 % (2-11); NEUTROPHILS 62.4 % (40-80); RBC 2.93 10x6/uL (4.00-5.40)
[2017-06-01 15:41] LABS: ALBUMIN 2.3 g/dL (3.4-5.0); ANION GAP 10.7 mmol/L (8-16); BILIRUBIN - TOTAL 2.51 mg/dL (0.2-1.3); CALCIUM 8.8 mg/dL (8.5-10.1); CARBON DIOXIDE 23.5 mmol/L (21.0-32.0); POTASSIUM - SERUM 4.2 mmol/L (3.5-5.1); PROTEIN - SERUM 5.9 g/dL (6.4-8.2)
[2017-06-01 15:57] LABS: ALBUMIN 2.4 g/dL (3.4-5.0); BILIRUBIN - DIRECT 0.81 mg/dL (0.00-0.30); BILIRUBIN - INDIRECT 1.74 mg/dL (0.00-1.00); BILIRUBIN - TOTAL 2.55 mg/dL (0.2-1.3)
[2017-06-01 16:18] LABS: PLATELET COUNT 46 10x3/uL (130-400)
[2017-06-01 17:39] LABS: APPEARANCE CLEAR (CLEAR); BILIRUBIN NEGATIVE (NEGATIVE); COLOR YELLOW (YELLOW); GLUCOSE NEGATIVE (NEGATIVE); KETONE NEGATIVE (NEGATIVE); NITRITE NEGATIVE (NEGATIVE); PROTEIN NEGATIVE (NEGATIVE); UROBILINOGEN NORMAL (NORMAL)
[2017-06-01 17:45] LABS: BACTERIA MANY /hpf (NONE SEEN); RED CELLS - URINE OCC /hpf (0-5); WHITE CELLS - URINE 0-5 /hpf (0-5)
--- NOTE | 2017-06-01 19:15 | NUR ---
NOTIFIED BY SETH BRIONES NURSE THAT THE ORDER FOR THE PRBC'S WAS ENTERED ON THE WRONG PATIENT.
--- NOTE | 2017-06-01 20:00 | NUR ---
[facility] PT FROM ER. PATIENT IS CURRENTLY CONFUSED AND HAS NO SIGNS OF DISTRESS. WAS UNABLE TO OBTAIN HISTORY AND LAST DOSE OF MEDS DUE TO THE PATIENT'S CONFUSION. PATIENT IS RESTING AND DENIES NEEDS. BED IN LOWEST POSITION, CALL LIGHT WITHIN REACH, AND THE PATIENT HAS BEEN PUT ON FALL PRECAUTIONS. ENCOURAGED THE PT TO CALL IF SHE HAS NEEDS.
[2017-06-02] VITALS (7 sets, daily range): BP systolic 123–154; BP diastolic 48–69; BMI 38.5; BMI 38.4
--- NOTE | 2017-06-02 01:46 | NUR ---
SPOKE WITH ANSELMO IN THE ER AND SHE WAS UNABLE TO TELL ME FOR CERTAIN IF A DR HAD BEEN CONTACTED IN REGARDS TO THE PT'S CRITICAL LOW PLATELET COUNT. SPOKE WITH GAVI MONSALVEORTHO NURSE AND SHE INFORMED ME THAT I NEED TO INFORM THE ADMITTING DR
--- NOTE | 2017-06-02 01:49 | NUR ---
BRUNA BECKHAM IN REGARDS TO PT'S CRITICAL LOW PLATELET COUNT
--- NOTE | 2017-06-02 01:51 | NUR ---
SPOKE WITH CHAPINCITO LUIS IN REGARDS TO PATIENT'S LAB RESULTS.
[2017-06-02 06:42] LABS: BASOPHILS 0.2 % (0-2); EOSINOPHILS 2.9 % (0-7); HEMATOCRIT 31.4 % (36.0-48.0); HEMOGLOBIN 10.9 g/dL (12-16); IMMATURE GRANULOCYTES 0.4 % (0-5); LYMPHOCYTES 14.9 % (15-50); MCH 35.2 pg (26.0-34.0); MCHC 34.7 g/dL (31.0-37.0); MCV 101.3 fL (80.0-100.0); MEAN PLATELET VOLUME 10.6 fL (7.4-10.4); MONOCYTES 14.9 % (2-11); NEUTROPHILS 66.7 % (40-80); RDW 16.3 % (11.5-14.5); WBC 5.5 10x3/uL (4.8-10.8)
[2017-06-02 06:49] LABS: PLATELET COUNT 45 10x3/uL (130-400)
--- NOTE | 2017-06-02 07:00 | NUR ---
REPORT RECIEVED ASSUMED CARE. PATIENT IN BED WITH IV INTACT. NO COMPLAINTS. CALL LIGHT WITHIN REACH.
[2017-06-02 09:00] LABS: ALBUMIN 2.6 g/dL (3.4-5.0); ANION GAP 12.9 mmol/L (8-16); BILIRUBIN - TOTAL 3.91 mg/dL (0.2-1.3); POTASSIUM - SERUM 3.9 mmol/L (3.5-5.1); PROTEIN - SERUM 6.4 g/dL (6.4-8.2)
--- NOTE | 2017-06-02 18:45 | NUR ---
PATIENT IN BED WITH IV INTACT. CONFUSED STILL. HELPED PUT GOWN AND BLANKETS BACK ON. NO COMPLAINTS OR SIGNS OF DISTRESS. BA ON. CALL LIGHT WITHIN REACH.
--- NOTE | 2017-06-02 19:30 | NUR ---
RECIEVED SHIFT REPORT. PT IS LYING IN BED. PT IS ORIENTED TO SELF ONLY AT THIS TIME. IV IS PATENT AND FLUIDS ARE RUNNING PER ORDER. MENDIOLA IS DRAINING URINE BY GRAVITY. PT REQUIRES SOME ASSISTANCE TURNING IN BED FOR COMFORT AND SKIN CARE. PT DENIES ANY PAIN AT THIS TIME. NO NEEDS ARE VERBALIZED AT THIS TIME. WILL CONTINUE TO MONITOR. SIDE RAILS ARE UP X 2. BED IS IN LOWEST POSITION. BED ALARM IS ON FOR SAFETY. CALL LIGHT IS WITHIN REACH.
--- NOTE | 2017-06-02 20:47 | NUR ---
SHIFT ASSESSMENT COMPLETED. NIGHT MEDS GIVEN WITH NO PROBLEMS. PT [id number]. NO INSULIN GIVEN AT THIS TIME DUE TO PT NOT WANTING TO EAT ANYTHING. NO NEEDS ARE VOICED. WILL MONITOR. SIDE RAILS X 2. BED LOW. BED ALARM ON. CALL LIGHT IN REACH.
[2017-06-03] VITALS: BP 139/53
[2017-06-03 04:00] VITALS: BP 144/62
[2017-06-03 05:55] LABS: BASOPHILS 0.4 % (0-2); EOSINOPHILS 5.8 % (0-7); HEMATOCRIT 31.1 % (36.0-48.0); HEMOGLOBIN 10.6 g/dL (12-16); IMMATURE GRANULOCYTES 0.2 % (0-5); LYMPHOCYTES 13.4 % (15-50); MCH 35.3 pg (26.0-34.0); MCHC 34.1 g/dL (31.0-37.0); MEAN PLATELET VOLUME 10.3 fL (7.4-10.4); MONOCYTES 11.9 % (2-11); NEUTROPHILS 68.3 % (40-80); RDW 16.6 % (11.5-14.5); WBC 5.2 10x3/uL (4.8-10.8)
[2017-06-03 06:15] LABS: MCV 103.7 fL (80.0-100.0)
[2017-06-03 06:16] LABS: PLATELET COUNT 48 10x3/uL (130-400)
[2017-06-03 06:56] LABS: ALBUMIN 2.6 g/dL (3.4-5.0); ANION GAP 14.1 mmol/L (8-16); BILIRUBIN - TOTAL 3.6 mg/dL (0.2-1.3); CALCIUM 8.5 mg/dL (8.5-10.1); CARBON DIOXIDE 19.2 mmol/L (21.0-32.0); CREATININE - SERUM 1.1 mg/dL (0.6-1.3); POTASSIUM - SERUM 4.3 mmol/L (3.5-5.1); PROTEIN - SERUM 6.3 g/dL (6.4-8.2)
[2017-06-03 07:53] VITALS: BP 135/64
--- NOTE | 2017-06-03 10:47 | NUR ---
LYING SUPINE WITH RESPIRATIONS EVEN AND NON LABORED. SRX2 WITH BED IN LOWEST POSITION AND WHEELS LOCKED. MENDIOLA PATENT AND DRAINING TO GRAVITY. CALL LIGHT IN REACH, WILL CONTINUE WITH PLAN OF CARE.
[2017-06-03 12:00] VITALS: BP 106/73
--- NOTE | 2017-06-03 12:42 | NUR ---
Patient Name: STEPHANIE SAHA Admission Status: ER Accout number: [id number] Admission Date: 06-01-2017 : 1950 Admission Diagnosis:ALTERED MENTAL STATUS, UNSPECIFIED Attending: AMBIKA MARTELL Current LOS: 2 Anticipated DC Date: Planned Disposition: Home Primary Insurance: MEDICARE A & B Discharge Planning Comments: CM met with patient and Damari (boyfriend) to assess discharge planning needs. Patient lives with her boyfriend (who is deaf and mute) There is a ramp at the home without any stairs. Patient has a walker, wheelchair, shower chair, and glucometer at home. Patient tis current with [facility] and is a patient of [facility]. CM will continue to follow and assist with discharge planning needs. PCP: [facility] (Lobito Esposito) with Dr Bains [address] [place] [address] Damari Buck (boyfriend) [phone] Web Worker: Kristy Lancaster * Is the patient Alert and Oriented? Yes 0 * How many steps to enter\exit or inside your home? RAMP 0 * PCP [facility] (LOBITO ESPOSITO) 0 * Pharmacy [facility] [address] 0 * Preadmission Environment Home with Family 0 * ADLs Independent 0 * Equipment Rolling Walker Shower Chair Walker Wheelchair 0 * List name and contact numbers for known caregivers / representatives who currently or will assist patient after discharge: DAMARI BUCK 0 * Community resources currently utilized Home Health 0 * Please name any agencies selected above. [facility] 0 * Additional services required to return to the preadmission environment? Yes 0 * Can the patient safely return to the preadmission environment? Yes 0 * Has this patient been hospitalized within the prior 30 days at any hospital? Yes 0 Grand Total: 0
[2017-06-03 16:35] VITALS: BP 148/64
--- NOTE | 2017-06-03 19:30 | NUR ---
RECIEVED SHIFT REPORT. PT IS LYING IN BED. PT IS ORIENTED TO SELF ONLY AT THIS TIME. PT REQUIRES SOME ASSISTANCE TURNING IN BED FOR COMFORT AND SKIN CARE. MENDIOLA IS DRAINING URINE BY GRAVITY. IV IS PATENT AND FLUIDS ARE RUNNING PER ORDER. JAMISON BAKERS FACE WITH PAIN 3/10. NO NEEDS ARE VERBALIZED AT THIS TIME. IS AT THE BEDSIDE. WILL CONTINUE TO MONITOR. SIDE RAILS ARE UP X 2. BED IS IN LOWEST POSITION. BED ALARMS ARE ON FOR SAFETY. CALL LIGHT IS WITHIN REACH.
[2017-06-03 20:00] VITALS: BP 135/54
--- NOTE | 2017-06-03 21:10 | NUR ---
SHIFT ASSESSMENT COMPLETED. NIGHT MEDS GIVEN WITH NO PROBLEMS. PT RECIEVED NO INSULIN AT THIS TIME. GWKY=[id number]. PT DOES NOT WANT A SNACK. NO NEEDS ARE VOICED. WILL MONITOR. SIDE RAILS X 2. BED LOW. BED ALARMS ON. CALL LIGHT IN REACH.
[2017-06-04] VITALS: BP 144/59
[2017-06-04 04:00] VITALS: BP 139/60
[2017-06-04 04:06] LABS: BASOPHILS 0.2 % (0-2); EOSINOPHILS 4.5 % (0-7); HEMATOCRIT 28.5 % (36.0-48.0); HEMOGLOBIN 9.8 g/dL (12-16); IMMATURE GRANULOCYTES 0.2 % (0-5); LYMPHOCYTES 12.9 % (15-50); MCH 35.1 pg (26.0-34.0); MCHC 34.4 g/dL (31.0-37.0); MCV 102.2 fL (80.0-100.0); MEAN PLATELET VOLUME 9.9 fL (7.4-10.4); MONOCYTES 14.4 % (2-11); NEUTROPHILS 67.8 % (40-80); PLATELET COUNT 52 10x3/uL (130-400); RBC 2.79 10x6/uL (4.00-5.40); RDW 16.3 % (11.5-14.5)
[2017-06-04 04:35] LABS: ALBUMIN 2.1 g/dL (3.4-5.0); ANION GAP 13.2 mmol/L (8-16); BILIRUBIN - TOTAL 3.39 mg/dL (0.2-1.3); CALCIUM 8.3 mg/dL (8.5-10.1); CARBON DIOXIDE 19.8 mmol/L (21.0-32.0); CREATININE - SERUM 1.1 mg/dL (0.6-1.3); PROTEIN - SERUM 5.7 g/dL (6.4-8.2)
--- NOTE | 2017-06-04 07:07 | NUR ---
REPORT RECIEVED, ASSUMED CARE OF PT. PT RESTING WITH EYES SHUT, EASILY AROUSED. L FOREARM IV INFUSING FLUIDS ORDERED, DRSG C/D/I. MENDIOLA IN PLACE, PATENT, DRAINING. SUKHJINDER MAT AND BED ALARM ON. NO NEEDS VOICED AT THIS TIME. BED IN LOWEST POSITION, SIDE RAILS UP X 2, CALL LIGHT WITHIN REACH.
--- NOTE | 2017-06-04 08:11 | NUR ---
PT LEFT FLOOR WITH IMAGING FOR MRI.
[2017-06-04 12:45] VITALS: BP 139/50
--- NOTE | 2017-06-04 13:00 | NUR ---
NUTRITION F/U CHART REVIEWED. SPOUSE ASSISTING PT WITH LUNCH, SLOW INTAKE BUT TOLERATING. SPEECH THERAPY IN ROOM. WILL CONTINUE TO PROVIDE DIET, MONITOR PO INTAKE. RD FOLLOWING
--- NOTE | 2017-06-04 13:42 | NUR ---
OT NOTE: WAS FEEDING PT LUNCH. REQUESTED THAT PT ATTEMPT, HOWEVER, SHE REQUIRED EXT TIME TO AQUATICS MANAGER UTENSIL AND MANIPULATE IT TO CORRECT POSITION. PT REMAINS DISORIENTED TO PLACE AND TIME. SHE DID RECOGNIZE HER BOYFRIEND, BUT WAS NOT ORIENTED TO ANYTHING ELSE. REMAINS WITH VERY SLOW PROCESSING FOR ALL TASKS.
[2017-06-04 16:25] VITALS: BP 148/70
--- NOTE | 2017-06-04 18:26 | NUR ---
OT NOTE: PT COMPLETED SIMPLE GROOMING AND HYGIENE TASKS WITH MOD A. PT REQUIRES EXTENSIVE CUES FOR SEQUENCING OF TASKS. THANK YOU, TONE TALBOT/Ori
[2017-06-04 18:31] LABS: UDS - AMPHET NEGATIVE QUAL (NEGATIVE); UDS - BARB NEGATIVE QUAL (NEGATIVE); UDS - BENZO NEGATIVE QUAL (NEGATIVE); UDS - COCAINE NEGATIVE QUAL (NEGATIVE); UDS - OPIATE NEGATIVE QUAL (NEGATIVE); UDS - PCP NEGATIVE QUAL (NEGATIVE); UDS - THC NEGATIVE QUAL (NEGATIVE)
[2017-06-04 20:00] VITALS: BP 131/74
[2017-06-05] VITALS: BP 121/52
[2017-06-05 04:00] VITALS: BP 134/58
[2017-06-05 05:44] LABS: BASOPHILS 0.4 % (0-2); EOSINOPHILS 3.9 % (0-7); HEMATOCRIT 28.4 % (36.0-48.0); HEMOGLOBIN 9.8 g/dL (12-16); IMMATURE GRANULOCYTES 0.2 % (0-5); MCHC 34.5 g/dL (31.0-37.0); MCV 101.4 fL (80.0-100.0); MEAN PLATELET VOLUME 10.1 fL (7.4-10.4); MONOCYTES 15.8 % (2-11); NEUTROPHILS 67.7 % (40-80); PLATELET COUNT 56 10x3/uL (130-400); RDW 16.3 % (11.5-14.5); WBC 5.6 10x3/uL (4.8-10.8)
[2017-06-05 06:24] LABS: ALBUMIN 2.4 g/dL (3.4-5.0); ANION GAP 13.2 mmol/L (8-16); BILIRUBIN - TOTAL 3.9 mg/dL (0.2-1.3); CALCIUM 8.4 mg/dL (8.5-10.1); CARBON DIOXIDE 18.7 mmol/L (21.0-32.0); CREATININE - SERUM 1.1 mg/dL (0.6-1.3); POTASSIUM - SERUM 3.9 mmol/L (3.5-5.1); PROTEIN - SERUM 5.9 g/dL (6.4-8.2)
--- NOTE | 2017-06-05 07:00 | NUR ---
RECEIEVED REPORT, ASSUMED CARE OF PT. RESTING WITH EYES SHUT, EASILY AROUSED, NO NEEDS VOICED AT THIS TIME. L FOREARM IV INFUSING FLUIDS ORDERED, DRSG C/D/I. MENDIOLA CATHETER IN PLACE, PATENT, DRAINING, SECURED TO LEG WITH STAT-LOCK. SUKHJINDER ALARM ON. BED IN LOWEST POSITION, SIDE RAILS UP X 2, CALL LIGHT WITHIN REACH.
[2017-06-05 08:07] VITALS: BP 115/94
--- NOTE | 2017-06-05 11:21 | NUR ---
Rehab Prescreening Consult recieved and the patient was visited. She is known from a previous stay in the rehab and is a good candidate when she is medically stable. Today she is disoriented to place and date and very tearful. She does not answer questions appropriatly or follow simple commands. Discussed with the CM Cristin Eugene RN. Mikaela Yeh RN Clinical Liaison, Rehab
[2017-06-05 11:55] VITALS: BP 136/64
[2017-06-05 16:00] VITALS: BP 120/64
--- NOTE | 2017-06-05 19:12 | NUR ---
PT IS LYING IN BED ON LEFT SIDE WITH EYES CLOSED. EVEN RISE AND FALL OF CHEST, NO SIGNS OF DISTRESS WILL CONTINUE WITH CARE PLAN
[2017-06-05 20:00] VITALS: BP 127/51
--- NOTE | 2017-06-05 21:42 | NUR ---
PT BED ALARM WAS GOING OFF. PT IS STANDING NEXT TO BED WITH GOWN HALF OFF, STATED SHE IS READY TO GO HOME, REORIENTED PT BACK TO HOSPITAL AND REINFORCED IMPORTANCE OF CONTINUEING CARE PLAN FOR PT TO GET BETTER SO THAT SHE MAY GO HOME. BED IS IN LOW POSITION, CALL LIGHT IN REACH. ENCOURAGED PT TO USE CALL LIGHT WHEN NEEDING TO GET UP
--- NOTE | 2017-06-05 23:25 | NUR ---
ASSESSED, PT IS CONFUSED, PLAYING WITH HER COVERS AND WATCHING TV. THE BED IS ALARMED AND SHE HAS A MENDIOLA CATH IN PLACE. THE TV IS ON, THE BED LOW, RAILS UP X'S 2 WITH THE CALL LIGHT AT HAND.
[2017-06-06] VITALS (7 sets, daily range): BP systolic 114–137; BP diastolic 43–64
[2017-06-06 06:17] LABS: BASOPHILS 0.4 % (0-2); EOSINOPHILS 3.9 % (0-7); HEMATOCRIT 27.6 % (36.0-48.0); HEMOGLOBIN 9.6 g/dL (12-16); IMMATURE GRANULOCYTES 0.2 % (0-5); LYMPHOCYTES 12.9 % (15-50); MCH 35.4 pg (26.0-34.0); MCHC 34.8 g/dL (31.0-37.0); MCV 101.8 fL (80.0-100.0); MEAN PLATELET VOLUME 10.1 fL (7.4-10.4); MONOCYTES 17.9 % (2-11); NEUTROPHILS 64.7 % (40-80); PLATELET COUNT 51 10x3/uL (130-400); RBC 2.71 10x6/uL (4.00-5.40); RDW 16.4 % (11.5-14.5); WBC 4.6 10x3/uL (4.8-10.8)
[2017-06-06 06:50] LABS: ALBUMIN 2.2 g/dL (3.4-5.0); ANION GAP 12.7 mmol/L (8-16); BILIRUBIN - TOTAL 4.11 mg/dL (0.2-1.3); CALCIUM 8.3 mg/dL (8.5-10.1); CARBON DIOXIDE 19.2 mmol/L (21.0-32.0); POTASSIUM - SERUM 3.9 mmol/L (3.5-5.1)
--- NOTE | 2017-06-06 07:35 | NUR ---
PT CONFUSED AT THIS TIME IV TO LEFT FOREARM PATENT AND INTACT AT THIS TIME SRX2 BED AT LOWEST SETTING CALL LIGHT WITHIN REACH WILL CONTINUE TO MONITOR
--- NOTE | 2017-06-06 19:44 | NUR ---
PATIENT RESTING IN BED WITH NO VISIBLE SIGNS OF DISTRESS. BROUGHT PATIENT WATER PER HER REQUEST. COMPLETED ASSESSMENT. BED IN LOWEST POSITION, CALL LIGHT WITHIN REACH, AND SUKHJINDER ALARM ON. ENCOURAGED THE PATIENT TO CALL IF SHE HAS NEEDS.
[2017-06-07 04:00] VITALS: BP 138/50
[2017-06-07 07:14] LABS: BASOPHILS 0.2 % (0-2); EOSINOPHILS 4.1 % (0-7); HEMATOCRIT 26.2 % (36.0-48.0); HEMOGLOBIN 9.1 g/dL (12-16); IMMATURE GRANULOCYTES 0.2 % (0-5); MCH 35.7 pg (26.0-34.0); MCHC 34.7 g/dL (31.0-37.0); MCV 102.7 fL (80.0-100.0); MEAN PLATELET VOLUME 9.8 fL (7.4-10.4); NEUTROPHILS 62.5 % (40-80); PLATELET COUNT 54 10x3/uL (130-400); RBC 2.55 10x6/uL (4.00-5.40); RDW 16.9 % (11.5-14.5); WBC 4.9 10x3/uL (4.8-10.8)
[2017-06-07 07:25] LABS: ALBUMIN 2.2 g/dL (3.4-5.0); ANION GAP 14.3 mmol/L (8-16); BILIRUBIN - TOTAL 3.69 mg/dL (0.2-1.3); CALCIUM 7.8 mg/dL (8.5-10.1); CARBON DIOXIDE 18.6 mmol/L (21.0-32.0); POTASSIUM - SERUM 3.9 mmol/L (3.5-5.1); PROTEIN - SERUM 5.6 g/dL (6.4-8.2)
--- NOTE | 2017-06-07 07:45 | NUR ---
PT AOX1 PERSON ONLY. PT CONFUSED. PT DENIES NEEDS AT THIS TIME SRX2 BED AT LOWEST SETTING CALL LIGHT WITHIN REACH WILL CONTINUE TO MONITOR
[2017-06-07 08:10] VITALS: BP 105/46
[2017-06-07 11:52] VITALS: BP 105/43
[2017-06-07 16:13] VITALS: BP 156/67
--- NOTE | 2017-06-07 19:42 | NUR ---
PATIENT RESTING IN BED AND DENIES NEEDS AT THIS TIME. BED IN LOWEST POSITION, CALL LIGHT WITHIN REACH AND BED ALARM ON. ENCOURAGED THE PATIENT TO CALL IF SHE HAS NEEDS.
[2017-06-07 21:22] VITALS: BP 109/42
[2017-06-08 04:00] VITALS: BP 137/59
--- NOTE | 2017-06-08 07:20 | NUR ---
ASSESSMENT PER FLOW SHEET.PT AWAKENS INT.SHE IS CONFUSED THIS AM.SHE IS ALSO HARD TO WAKE.FALL PREVENTION IN PLACE WITH SUKHJINDER MAT ON AND FUNCTIONING.DOOR OPEN TO MONITOR
[2017-06-08 08:00] VITALS: BP 111/42
[2017-06-08 10:36] LABS: BASOPHILS 0.3 % (0-2); HEMATOCRIT 25.4 % (36.0-48.0); HEMOGLOBIN 8.9 g/dL (12-16); IMMATURE GRANULOCYTES 0.3 % (0-5); LYMPHOCYTES 16.6 % (15-50); MCH 35.9 pg (26.0-34.0); MCV 102.4 fL (80.0-100.0); MEAN PLATELET VOLUME 9.3 fL (7.4-10.4); NEUTROPHILS 64.8 % (40-80); PLATELET COUNT 50 10x3/uL (130-400); RBC 2.48 10x6/uL (4.00-5.40); RDW 16.9 % (11.5-14.5); WBC 3.8 10x3/uL (4.8-10.8)
[2017-06-08 10:58] LABS: ALBUMIN 2.1 g/dL (3.4-5.0); ANION GAP 14.3 mmol/L (8-16); BILIRUBIN - TOTAL 3.38 mg/dL (0.2-1.3); CALCIUM 7.7 mg/dL (8.5-10.1); CARBON DIOXIDE 18.5 mmol/L (21.0-32.0); POTASSIUM - SERUM 3.8 mmol/L (3.5-5.1); PROTEIN - SERUM 5.6 g/dL (6.4-8.2)
[2017-06-08 12:14] VITALS: BP 138/56
--- NOTE | 2017-06-08 15:20 | NUR ---
PT WANTS BACK TO BED,PT HERE ON UNIT.
[2017-06-08 16:39] VITALS: BP 133/53
--- NOTE | 2017-06-08 17:01 | NUR ---
REMAINS WIHTOUT DISTRESS.DOOR OPEN TO MONITOR
--- NOTE | 2017-06-08 19:00 | NUR ---
REPORT RECEIVED AND ASSESMENT COMPLETED. SEE FLOWSHEET FOR FULL DETAILS. PT IS STILL CONFUSED THOUGH SPEECH IS CLEAR. ABLE TO TURN SELF IN BED. ON LACTULOSE. WILL MONITOR THROUGHOUT SHIFT
[2017-06-08 20:00] VITALS: BP 128/58
--- NOTE | 2017-06-08 21:00 | NUR ---
2100 MEDS GIVEN FSBS 194. 2 UNITE HUMALOG GIVEN. WILL MONITOR FOR CHANGES IN STATUS
--- NOTE | 2017-06-08 23:00 | NUR ---
NO CHANGES IN STATUS AT THIS TIME. PT HAS HAD 3 BM. WILL MONITOR
[2017-06-09] VITALS: BP 112/42
--- NOTE | 2017-06-09 01:00 | NUR ---
PT HAS HAD MULTIPLE LIQUID STOOLS. COMPLETE AND PARTIAL LINEN CHANGES PERFORMED. NO OTHER CHANGES IN STATUS WILL MONITOR
--- NOTE | 2017-06-09 03:00 | NUR ---
NO CHANGES IN STATUS AT THIS TIME. WILL CONTINUE TO MONITOR
[2017-06-09 04:00] VITALS: BP 121/54
--- NOTE | 2017-06-09 05:00 | NUR ---
PT RESTING IN ROOM NO CHANGES IN STATUS. CALL LIGHT IN REACH BED IN LOW POSITION. WILL MONITOR
[2017-06-09 05:42] LABS: BASOPHILS 0.3 % (0-2); EOSINOPHILS 5.2 % (0-7); HEMATOCRIT 26.4 % (36.0-48.0); IMMATURE GRANULOCYTES 0.3 % (0-5); LYMPHOCYTES 16.9 % (15-50); MCH 35.3 pg (26.0-34.0); MCHC 34.1 g/dL (31.0-37.0); MCV 103.5 fL (80.0-100.0); MONOCYTES 16.6 % (2-11); NEUTROPHILS 60.7 % (40-80); PLATELET COUNT 60 10x3/uL (130-400); RBC 2.55 10x6/uL (4.00-5.40); RDW 17.1 % (11.5-14.5); WBC 3.9 10x3/uL (4.8-10.8)
[2017-06-09 05:57] LABS: ALBUMIN 2.1 g/dL (3.4-5.0); ANION GAP 13.8 mmol/L (8-16); BILIRUBIN - TOTAL 2.33 mg/dL (0.2-1.3); CALCIUM 8.2 mg/dL (8.5-10.1); CARBON DIOXIDE 18.9 mmol/L (21.0-32.0); POTASSIUM - SERUM 3.7 mmol/L (3.5-5.1); PROTEIN - SERUM 5.5 g/dL (6.4-8.2)
--- NOTE | 2017-06-09 07:00 | NUR ---
REPORT RECIEVED ASSUMED CARE. PATIENT IN BED WITH IV INTACT. NO COMPLAINTS OR SIGNS OF DISTRESS. CALL LIGHT WITHIN REACH.
[2017-06-09 08:20] VITALS: BP 116/51
--- NOTE | 2017-06-09 12:00 | NUR ---
PATIENT SITTING UP IN CHAIR EATING LUNCH. NO COMPLAINTS. CALL LIGHT WITHIN REACH. FAMILY AT BEDSIDE.
--- NOTE | 2017-06-09 12:44 | NUR ---
NUTRITION F/U PT UP IN CHAIR. DID NOT EAT BREAKFAST OR LUNCH PROVIDED. DID HOWEVER EAT TAKE OUT PROVIDED BY FAMILY AT LUNCH. WILL CONTINUE TO PROVIDE DIET, MONITOR PO INTAKE. RD FOLLOWING
[2017-06-09 12:47] VITALS: BP 131/58
[2017-06-09] MEDS ORDERED: ROCEPHIN 1 GM/D51 G1 IV (13:40)
[2017-06-09] MEDS ORDERED: LOVENOX30 MG/0.3 SC (13:40)
[2017-06-09] MEDS ORDERED: IPRAT-ALBUT 0.5-3 ML UPD (13:40)
[2017-06-09] MEDS ORDERED: ALDACTONE25 MG PO (13:41)
[2017-06-09] MEDS ORDERED: FLORAJEN3 CAPS460 MG PO (13:42)
[2017-06-09] MEDS ORDERED: CHRONULAC30 ML PO (13:42)
[2017-06-09] MEDS ORDERED: HUMALOG 30100 UNITS/ SC (13:42)
[2017-06-09] MEDS ORDERED: PROTONIX40 MG PO (13:42)
--- NOTE | 2017-06-09 14:30 | NUR ---
OT NOTE: PT MUCH MORE ALERT AND ORIENTED TODAY. TODAY WAS THE FIRST TIME SHE WAS ABLE TO RECALL ALL QUESTIONS REGARDING AM. PT ABLE TO TELL WHAT SHE HAD FOR LUNCH AND BREAKFAST; ABLE TO RECALL HOW LONG SHE HAD BEEN SITTING UP IN CHAIR; ABLE TO RECALL PREVIOUS THERAPY EARLIER IN THE DAY. PT CONTINUES TO REQUIRE MODERATE ASSIST FOR SIT TO STAND AND TRANSFERS; ALSO EXTENSIVE ASSIST WITH ADLS. WILL DO WELL IN IN PT REHAB
--- NOTE | 2017-06-09 15:06 | NUR ---
Patient being discharged today to inpatient rehab. family at bedside. imm served
--- NOTE | 2017-06-09 15:50 | NUR ---
PATIENT BACK IN BED WITH EYES CLOSED RESTING QUIETLY. IV INTACT. NO COMPLAINTS OR SIGNS OF DISTRESS. CALL LIGHT WITHIN REACH.
[2017-06-09 15:54] VITALS: BP 120/50
--- NOTE | 2017-06-09 16:00 | NUR ---
REPORT CALLED TO REHAB. WILL TAKE PATIENT AFTER MEDS AND DINNER. VERBALIZED UNDERSTANDING. CALL LIGHT WITHIN REACH.
--- NOTE | 2017-06-09 17:22 | NUR ---
OT NOTE: PT COMPLETED BED MOB WITH SIDE RAIL. PT COMPLETED SIMPLE HYGIENE TASK WITH SET UP. PT COMPLETED BUE AROM EXS FOR INCREASED AX TOLERANCE WITH FX AXS. THANK YOU, TONE TALBOT/Ori
--- NOTE | 2017-06-09 18:26 | NUR ---
PATIENT TO REHAB VIA WC WITH PERSONAL BELONGINGS BY CNAS.
== END 2017-06-09 18:30 | DRG 442 ==
LOC: D.ER 14:56 → D.MS 19:11
PROVIDERS: Emergency Medicine; Family Medicine; ADMIT Family Medicine
PROC: 0T9B70Z Drainage of Bladder with Drainage Device, Via Natural or Artificial Opening (ICD-10-PCS; principal; 2017-06-01)
DX: K72.90 Hepatic failure, unspecified without coma (principal); R18.8 Other ascites; D61.818 Other pancytopenia; N39.0 Urinary tract infection, site not specified; I69.359 Hemiplegia and hemiparesis following cerebral infarction affecting unspecified side; K74.60 Unspecified cirrhosis of liver; E86.0 Dehydration; H91.3 Deaf nonspeaking, not elsewhere classified; E11.65 Type 2 diabetes mellitus with hyperglycemia; I10 Essential (primary) hypertension; B19.20 Unspecified viral hepatitis C without hepatic coma; E03.9 Hypothyroidism, unspecified; R16.1 Splenomegaly, not elsewhere classified

== ENCOUNTER 2017-06-09 17:10 | Inpatient (IN) | payer MEDICARE, MEDICAID ==
[~2017-06-09 17:10] MED LIST changes: +ALDACTONE25 MG PO; +FLORAJEN3 CAPS460 MG PO; +HUMALOG 30100 UNITS/ SC; +IPRAT-ALBUT 0.5-3 ML UPD; +LOVENOX30 MG/0.3 SC; +PROTONIX40 MG PO; +ROCEPHIN 1 GM/D51 G1 IV
--- NOTE | 2017-06-09 20:28 | NUR ---
PT. IN BED WITH HOB UP FOR COMFORT WITH EYES CLOSED AND RESP. EVEN. MENDIOLA TO BSD WITHOUT PROBLEMS. CALL LIGHT WITHIN REACH.
--- NOTE | 2017-06-09 20:45 | NUR ---
PT IN BED WITH HOB UP FOR COMFORT. FAMILY AT BEDSIDE. ALERT & ORIENTED. MENDIOLA CATH. NO O2. LEFT FA SALINE LOC. FSBS ACHS. ELECTROLYTE PROTOCOL. BED IN LOWEST POSITION AND CALL LIGHT WITHIN REACH.
--- NOTE | 2017-06-09 22:50 | NUR ---
CHRIS ORTIZ TO DO ASSESSMENT.
[2017-06-09 22:52] VITALS: BP 131/63; BMI 35.4
[2017-06-09 22:56] VITALS: BP 131/63
--- NOTE | 2017-06-10 01:31 | NUR ---
PT IN BED WITH HOB UP FOR COMFORT. EYES CLOSED. CHEST RISING AND FALLING. BED IN LOWEST POSITION AND CALL LIGHT WITHIN REACH.
--- NOTE | 2017-06-10 05:30 | NUR ---
PT LYING IN BED. EYES CLOSED. CHEST RISING AND FALLING. BED IN LOWEST POSITION AND CALL LIGHT WITHIN REACH.
[2017-06-10 06:03] LABS: BASOPHILS 0.3 % (0-2); EOSINOPHILS 6.4 % (0-7); HEMATOCRIT 26.3 % (36.0-48.0); IMMATURE GRANULOCYTES 0.3 % (0-5); LYMPHOCYTES 18.7 % (15-50); MCHC 34.2 g/dL (31.0-37.0); MCV 105.2 fL (80.0-100.0); MEAN PLATELET VOLUME 9.8 fL (7.4-10.4); MONOCYTES 16.8 % (2-11); NEUTROPHILS 57.5 % (40-80); PLATELET COUNT 56 10x3/uL (130-400); RDW 17.6 % (11.5-14.5); WBC 3.3 10x3/uL (4.8-10.8)
[2017-06-10 06:19] LABS: ANION GAP 12.5 mmol/L (8-16); CALCIUM 8.1 mg/dL (8.5-10.1); CARBON DIOXIDE 20.2 mmol/L (21.0-32.0); POTASSIUM - SERUM 3.7 mmol/L (3.5-5.1)
[2017-06-10 06:44] LABS: PLATELET ESTIMATE DECREASED
--- NOTE | 2017-06-10 08:00 | NUR ---
SHIFT ASSMT COMPLETED.CL IN REACH.ALARM ON.
[2017-06-10 08:26] VITALS: BP 121/54
--- NOTE | 2017-06-10 12:00 | NUR ---
MEAL SET-UP PROVIDED.CL IN REACH.
[2017-06-10 19:45] VITALS: BP 120/46
--- NOTE | 2017-06-10 19:45 | NUR ---
ASSESSMENT PER FLOW SHEET, SALINE LOCK IN LEFT FA INTACT WITH NO REDNESS OR EDEMA, PT DENIES NEEDS OR PAIN, STATES "I'M JUST TIRED AND I'M READY TO GET SOME REST"
--- NOTE | 2017-06-10 20:30 | NUR ---
PT RESTING WITH EYES CLOSED, RESP QUIET, NO DISTRESS NOTED, LEFT UNDISTURBED AT THIS TIME
--- NOTE | 2017-06-10 21:53 | NUR ---
PT RESTING WITH EYES CLOSED, AROUSES TO SOFT VERBAL STIMUALTION, FSBS, ADM 2100 MEDS WITH FRESH H20, SEE EMAR, PT REFUSES LACTULOSE, PT DENIES NEEDS OR PAIN AT THIS TIME
--- NOTE | 2017-06-10 22:25 | NUR ---
PT AWAKE, DENIES NEEDS OR PAIN AT THIS TIME
--- NOTE | 2017-06-10 23:37 | NUR ---
PT RESTING WITH EYES CLOSED, RESP QUIET, NO DISTRESS NOTED, LEFT UNDISTURBED AT THIS TIME
--- NOTE | 2017-06-11 01:40 | NUR ---
PT AWAKE, REQUESTED AND SERVED FRESH H20, PT DENIES FURTHER NEEDS OR PAIN
--- NOTE | 2017-06-11 03:03 | NUR ---
PT RESTING WITH EYES CLOSED, RESP QUIET, NO DISTRESS NOTED, LEFT UNDISTURBED AT THIS TIME
--- NOTE | 2017-06-11 03:45 | NUR ---
PT AWAKE, PT REPOSITIONED IN BED, DENIES FURTHER NEEDS OR PAIN AT THIS TIME
--- NOTE | 2017-06-11 05:40 | NUR ---
PT RESTING WITH EYES CLOSED, AROUSES TO SOFT VERBAL STIMUALTION, FSBS 70, ADM 0600 MEDS PO PER MD ORDERS, JUICE PROVIDED, MENDIOLA CATH EMPTIED, PT DENIES NEEDS OR PAIN AT THIS TIME
--- NOTE | 2017-06-11 07:12 | NUR ---
SHIFT REPORT TO DAY SHIFT
[2017-06-11 08:00] VITALS: BP 130/75
--- NOTE | 2017-06-11 08:00 | NUR ---
SHIFT ASSMT COMPLETED.DENIES NEEDS.MEAL GIVEN.
--- NOTE | 2017-06-11 12:00 | NUR ---
SLUMPS IN CHAIR.STATES TIRED AND WANTED TO GO TO BED.PLACED IN BED.VSS.FSBS WNL.MEAL GIVEN.
--- NOTE | 2017-06-11 14:51 | RHP ---
PATIENT: STEPHANIE SAHA MEDICAL RECORD: [id number] ACCOUNT: [id number] LOCATION:[facility]1118 : 52 ADMISSION DATE: 06/09/17 REHABILITATION HISTORY AND PHYSICAL EXAMINATION POST ADMISSION PHYSICIAN EXAMINATION POST-ADMISSION PHYSICAL EXAMINATION AND HISTORY AND PHYSICAL DATE OF ADMISSION: 06/09/2017 ADMITTING DIAGNOSES: Acute metabolic encephalopathy. HISTORY OF PRESENT ILLNESS: This patient is admitted to inpatient rehab for a neurological condition secondary to acute metabolic encephalopathy. A 66-year-old female patient well known to [facility]. She has stayed here before in the past. She presented to the acute hospitalist with acute mental status changes, was found to have an ammonia level in the 90s. She has got a history of CVA, diabetes, hypothyroidism, hypertension, hep C, chronic elevated ammonia levels, cirrhosis, thrombocytopenia, nonalcoholic liver failure, splenomegaly, and pancytopenia. She has had her dosage of lactulose increased and ammonia level is now normal. During her hospital stay, she was found to have UTI with Proteus mirabilis and is now on IV antibiotics. The patient's mental status has progressed and clear, is now alert and oriented with some periods of confusion, but is able to follow commands and complete tasks. She was moderately independent to independent with ADLs and mobility, occasionally using a rolling walker. She is currently min assist to max assist with her ADLs and moderate assist to max assist for mobility. Plans to return home with her boyfriend, hopefully get back to her prior level of functioning or better if possible. COMORBIDITIES: In this patient include UTI, metabolic encephalopathy, pancytopenia, chronic hypertension, hypothyroidism, BMI greater than 35, chronic murmur, dehydration, malaise, fatigue, elevated ammonia level, mental status changes, CVA, cirrhosis, esophageal varices, ascites, hepatic encephalopathy, and self-care deficit. PAST MEDICAL HISTORY: Significant for CVA, diabetes, hypothyroidism, hypertension, diabetes, hep C, elevated ammonia level, cirrhosis, thrombocytopenia, fatty liver, and chronic esophageal varices. PAST SURGICAL HISTORY: Includes gallbladder and hysterectomy. ALLERGIES: MORPHINE AND CODEINE. CURRENT MEDICATIONS: Include Topamax 50 mg daily, Protonix 40 mg daily, lisinopril 10 mg daily, Synthroid 50 mcg daily. She is on glipizide 5 mg b.i.d., Lovenox 30 mg subcutaneous daily, Rocephin 1 gram every 24 hours, Ziac 10/6.25 daily, acetaminophen 650 mg every 6 hours, spironolactone 50 mg b.i.d., Xifaxan 550 mg b.i.d., lactulose 45 cc t.i.d., DuoNeb updrafts as needed on a low resistant sliding scale, currently on an electrolyte protocol, polyethylene glycol 17 grams in 8 ounces of water daily as needed. HABITS: No current alcohol or tobacco use. FAMILY HISTORY: Noncontributory. HISTORY AND PHYSICAL [id number] STEPHANIE SAHA SOCIAL HISTORY: As above. Hopes to return back home with her boyfriend and get back to her prior level of functioning. REVIEW OF SYSTEMS: GENERAL: She does complain of some weakness. HEENT: Denies cold, cough, or congestion. CARDIOVASCULAR: Denies chest pain. PHYSICAL EXAMINATION: VITAL SIGNS: Stable, afebrile. GENERAL: A somewhat obese female, in no acute distress, alert upon exam. HEENT: Normocephalic and atraumatic. Mucosa moist. NECK: Supple. No lymphadenopathy. LUNGS: Clear at this time. HEART: Regular rate and rhythm. ABDOMEN: Soft, although somewhat protuberant. EXTREMITIES: No clubbing, cyanosis, or edema. NEUROLOGIC: Seems intact. LABORATORY DATA: White count is 3.3, H&H of 9 and 26, and platelet count was noted to be 56,000, MCV is 105.2. Sodium 139, potassium 3.7, BUN and creatinine of 13 and 1.0, and blood sugar is noted to be 135. ASSESSMENT: This 66-year-old female patient admitted to rehab with a working diagnosis of metabolic encephalopathy caused by elevated ammonia levels. The patient has potential to make improvement. We will institute the following multidisciplinary therapies including to, but not limited to physical, occupational, respiratory, speech, nutritional services, prosthetics and orthotics. Given her complex condition and risk for more complications, rehabilitation services cannot be provided at a low level of care such as a detention facility. PLAN: 1. Admit to [facility] for intensive inpatient therapy to include the following disciplines: A. Physical therapy to improve gait, all transfer skills and bed mobility to a modified independent level. B. Occupational therapy to improve activities of daily living to a modified independent level. C. Case management to assist with discharge planning and placement options. D. Nutrition to assist with nutritional needs. E. Rehabilitation nursing to assist in monitoring the patient's underlying medical conditions and to assist with any type of bowel or bladder management. 2. The patient's current medication and medical care will be continued. 3. The patient will be placed on standard fall precautions. 4. We will discuss this patient during care team staff meeting this week. 5. We will go ahead and follow her ammonia levels closely. TRANSINT:[id number] Voice Confirmation ID: [id number] DOCUMENT ID: [id number] JOSÉ LUIS notes whether there has been none or any medical/functional change since admission: - No change since prescreen. HISTORY AND PHYSICAL [id number] STEPHANIE SAHA attests patient continues to be appropriate for IRF: - Continues to be appropriate. IVA GASTELUM MD at 1451 CC: [id number] DICTATION DATE: 06/10/17 09 TEXTILE EXAMINER: 06/10/17 1101 ADM IN [facility] [address] [place] [address]
--- NOTE | 2017-06-11 16:00 | NUR ---
RESTING QUIETLY.DENIES NEEDS.FC DC'D WITH TIP INTACT.VOIDED SINCE THEN X1.
--- NOTE | 2017-06-11 20:00 | NUR ---
PT IN BED WITH HOB UP FOR COMOFRT. EYES CLOSED. RESP. EVEN. NO O2. LEFT FA SL. ELECTROLYTE PROTOCOL. FSBS ACHS. SUKHJINDER ALARM. BED IN LOWEST POSITION AND CALL LIGHT WITHIN REACH.
[2017-06-11 20:30] VITALS: BP 111/43
--- NOTE | 2017-06-12 | NUR ---
PT IN BED WITH HOB UP FOR COMFORT. EYES CLOSED. CHEST RISING AND FALLING. BED IN LOWEST POSITION AND CALL LIGHT WITHIN REACH.
--- NOTE | 2017-06-12 04:59 | NUR ---
PT LYING IN BED WITH HOB UP FOR COMFORT. EYES CLOSED. CHEST RISING AND FALLING. BED IN LOWEST POSITION AND CALL LIGHT WITHIN REACH.
--- NOTE | 2017-06-12 05:55 | NUR ---
PT HAS BS OF 49. ORANGE JUICE AND SUJATHA CRACKERS GIVEN.
--- NOTE | 2017-06-12 06:46 | NUR ---
RECHECKED PT'S BS AND IT IS NOW 122.
[2017-06-12 07:18] LABS: HEMATOCRIT 27.3 % (36.0-48.0); HEMOGLOBIN 9.4 g/dL (12-16); MCHC 34.4 g/dL (31.0-37.0); MCV 104.6 fL (80.0-100.0); MEAN PLATELET VOLUME 9.7 fL (7.4-10.4); RBC 2.61 10x6/uL (4.00-5.40); RDW 17.7 % (11.5-14.5); WBC 2.9 10x3/uL (4.8-10.8)
[2017-06-12 07:19] LABS: PLATELET COUNT 44 10x3/uL (130-400)
[2017-06-12 07:24] LABS: ANION GAP 11.5 mmol/L (8-16); CALCIUM 8.2 mg/dL (8.5-10.1); CARBON DIOXIDE 20.2 mmol/L (21.0-32.0); POTASSIUM - SERUM 3.7 mmol/L (3.5-5.1)
[2017-06-12 07:39] LABS: EOSINOPHILS 5 % (0-7); LYMPHOCYTES 20 % (15-50); MONOCYTES 8 % (2-11); NEUTROPHILS 67 % (40-80); PLATELET ESTIMATE DECREASED
--- NOTE | 2017-06-12 08:00 | NUR ---
POSITIONED ON SIDE OF BED.MEAL SET-UP PROVIDED.BREAKFAST GIVEN.LAB RESULTS GIVEN TO .PLT CT 44.SHIFT ASSMT COMPLETED.
[2017-06-12 09:38] VITALS: BP 109/44
--- NOTE | 2017-06-12 12:00 | NUR ---
SITTING ON SIDE OF BED EATING LUNCH WITH FAMILY.
[2017-06-12 14:50] VITALS: BMI 35.3
--- NOTE | 2017-06-12 16:00 | NUR ---
RESTING QUIETLY.CL IN REACH.
--- NOTE | 2017-06-12 19:45 | NUR ---
REST IN BED, AND EAT SNACK.
[2017-06-12 23:13] VITALS: BP 136/77
--- NOTE | 2017-06-13 02:35 | NUR ---
RESTING QUIETLY IN BED, EYES CLOSED.
--- NOTE | 2017-06-13 03:51 | NUR ---
REST IN BED, EYE CLOSE, BED LOW, SIDERAIL UP X 2, CALL LIGHT IN REACH.
--- NOTE | 2017-06-13 08:19 | NUR ---
PT EATING BREAKFAST, DENIES NEEDS. WCTM.
[2017-06-13 09:00] VITALS: BP 109/36
[2017-06-13 09:12] LABS: FOLATE (FOLIC ACID) - SERUM 10.3 ng/mL (>3.0)
--- NOTE | 2017-06-13 11:17 | NUR ---
PATIENT WORKING WITH PHYSICAL THERAPIST. WALKING DOWN THE HALLWAY WITH WHEELED WALKER, GAIT BELT AROUND PATIENTS WAIST
--- NOTE | 2017-06-13 11:55 | NUR ---
GLUCOSE LEVEL 117. NO SLIDING SCALE INSULIN PER ORDER
--- NOTE | 2017-06-13 15:25 | NUR ---
PATIENT RESTING IN BED AFTER FAMILY INTO VISIT
--- NOTE | 2017-06-13 17:09 | NUR ---
IV ROCEPHIN RUNNING. PERIPHERAL LINE IN LEFT FA. GLUCOSE LEVEL 131. NO SLIDING SCALE INSULIN GIVEN PER ORDER.
--- NOTE | 2017-06-13 19:20 | NUR ---
FAMILY MEMBERS VISITED PT.
[2017-06-13 22:39] VITALS: BP 116/45
--- NOTE | 2017-06-14 01:09 | NUR ---
REST IN BED, EYE CLOSE, CALL LIGHT IN REACH.
--- NOTE | 2017-06-14 03:12 | NUR ---
RESTING IN BED WITH EYES CLOSED. NO S/S OF DISTRESS OBSERVED. SALINE LOCK TO LEFT FOREARM PATENT WITH DRESSING INTACT. CALL LIGHT AND OVERBED TABLE IN REACH.
[2017-06-14 08:00] VITALS: BP 91/43
--- NOTE | 2017-06-14 08:00 | NUR ---
PATIENT ALERT/ORIET X4. SUKHJINDER ALARM ON. CALL LIGHT WITHIN REACH. VOICES NO NEEDS AT THIS TIME.
--- NOTE | 2017-06-14 11:38 | NUR ---
PATIENT IN SHOWER. NURSE ASST HELPING WITH SHOWER.
--- NOTE | 2017-06-14 11:52 | NUR ---
GLUCOSE LEVEL 118. NO SLIDING SCALE INSULIN GIVEN PER ORDER
[2017-06-14 12:07] VITALS: BP 91/43
--- NOTE | 2017-06-14 12:29 | NUR ---
PT EATING LUNCH, DENIES NEEDS. WCTM.
--- NOTE | 2017-06-14 13:55 | NUR ---
PATIENTS IN ROOM. ASKED IF PATIENT COULD GO UPSTAIRS TO MED SURG TO SEE DAUGHTER THAT IS IN THE HOSPITAL. THIS NURSE STATED THAT WOULD BE ALRIGHT JUST LONG SHE WENT IN A WHEELCHAIR AND HER STAYED WITH HER. NURSE REQUESTED THAT SHE BE BACK WITHIN THE HOUR.
--- NOTE | 2017-06-14 14:37 | NUR ---
PATIENT BACK FROM VISITING DAUGHTER IN HOSPITAL ON MED SURG.
--- NOTE | 2017-06-14 17:12 | NUR ---
GLUCOSE LEVEL 123. NO SLIDING SCALE INSULIN GIVEN PER ORDER. ANTIBIOTIC RUNNING IN LEFT FOREARM PERIPHERAL LINE.
--- NOTE | 2017-06-14 20:30 | NUR ---
REST IN BED AND WATCH TV.
[2017-06-14 21:59] VITALS: BP 117/54
--- NOTE | 2017-06-15 04:10 | NUR ---
REST QUIETLY IN BED, EYE CLOSE, CALL LIGHT IN REACH.
--- NOTE | 2017-06-15 04:19 | NUR ---
RESTING IN BED WITH EYES CLOSED. NO S/S OF DISTRESS OBSERVED. SALINE LOCK TO LEFT FA PATENT WITH DRESSING INTACT. NO REDNESS OR SWELLING TO SITE. CALL LIGHT AND OVERBED TABLE IN REACH.
--- NOTE | 2017-06-15 05:32 | NUR ---
PT FSBS IS 60, APPLE JUICE AND GRAHAMS CRACKERS GIVEN.
[2017-06-15 05:49] LABS: BASOPHILS 0.3 % (0-2); HEMATOCRIT 28.5 % (36.0-48.0); HEMOGLOBIN 9.7 g/dL (12-16); LYMPHOCYTES 22.8 % (15-50); MCH 35.9 pg (26.0-34.0); MCV 105.6 fL (80.0-100.0); MEAN PLATELET VOLUME 9.6 fL (7.4-10.4); MONOCYTES 11.7 % (2-11); NEUTROPHILS 61.2 % (40-80); RDW 17.2 % (11.5-14.5); WBC 3.2 10x3/uL (4.8-10.8)
[2017-06-15 05:56] LABS: PLATELET COUNT 40 10x3/uL (130-400)
--- NOTE | 2017-06-15 06:06 | NUR ---
ACCORDING TO LAB REPORTED AT 529, PT PIT COUNT IS 40, REPORTED IT TO CHARGE NURSE, AND REPORTED IT TO DOCTOR.
[2017-06-15 06:10] LABS: CALC OSMOLALITY 281 mosm/kg (275-300); CALCIUM 8.5 mg/dL (8.5-10.1); CARBON DIOXIDE 23.1 mmol/L (21.0-32.0); CHLORIDE - SERUM 113 mmol/L (98-107); CREATININE - SERUM 0.8 mg/dL (0.6-1.3); GLUCOSE 66 mg/dL (74-106); POTASSIUM - SERUM 3.9 mmol/L (3.5-5.1); SODIUM 142 mmol/L (136-145); UREA NITROGEN 15 mg/dL (7-18); eGFR NON AFRICAN AMERICAN 76 mL/min (90-120)
--- NOTE | 2017-06-15 06:21 | NUR ---
RECHECK PT BLOOD SUGAR IS 97.
--- NOTE | 2017-06-15 06:56 | NUR ---
RESTING QUIETLY IN BED. BED IN LOWEST POSITION. CALL LIGHT IN REACH.
[2017-06-15 08:39] VITALS: BP 124/52
--- NOTE | 2017-06-15 09:00 | NUR ---
DR. Ilene GASTELUM INTO SEE PATIENT AWARE OF LOW PLT COUNT. NO NEW ORDERS RECEIVED
--- NOTE | 2017-06-15 11:00 | NUR ---
PATIENT IN REHAB ROOM. WORKING WITH PHYSICAL THERAPIST. DENIES ANY PAIN/DISC AT THIS TIME.
--- NOTE | 2017-06-15 15:05 | NUR ---
PATIENT REQUESTED HELP WALKING FROM BED INTO BATHROOM. PATIENT IS A STANDBY ASST. PATIENT CONT OF B/B. ABLE TO DO OWN FRANKY CARE.
--- NOTE | 2017-06-15 17:32 | NUR ---
PATIENTS IN TO VISIT. BROUGHT IN CHIKEN NUGGITS FROM FAST FOOD REST. PATIENT IS ON A LOW FAT LOW CHOLESTEROL DIET. PATIENT AND HAVE BEEN MADE AWARE OF THIS DIET.
--- NOTE | 2017-06-15 19:40 | NUR ---
PT. IN BED LYING ON HER LEFT SIDE WITH EYES CLOSED AND RESP. EVEN. PT. AWAKENS EASILY FOR ASSESSMENT. NO VOICED NEEDS AT THIS TIME AND HER CALL LIGHT IS WITHIN REACH.
[2017-06-15 20:00] VITALS: BP 108/55
--- NOTE | 2017-06-15 23:13 | NUR ---
PT. IN BED WITH HOB UP FOR COMFORT LYING ON HER RIGHT SIDE. EYES CLOSED AND RESP. DEEP AND EVEN WITH CALL LIGHT WITHIN REACH.
--- NOTE | 2017-06-16 03:11 | NUR ---
PT. IN BED WITH HOB UP FOR COMFORT AND IS LYING ON HER RIGHT SIDE. EYES CLOSED AND RESP. EVEN WITH CALL LIGHT WITHIN REACH.
--- NOTE | 2017-06-16 08:00 | NUR ---
SHIFT ASSMT COMPLETED.DENIES NEEDS.CL IN REACH.
[2017-06-16 08:42] VITALS: BP 111/45
--- NOTE | 2017-06-16 12:00 | NUR ---
SITTING UP IN BED FOR LUNCH.CL IN REACH.
--- NOTE | 2017-06-16 14:18 | NUR ---
Nutrition Follow Up: Pt is eating 81% meal avg on a regular diet. +BM 06/16/17. Meds and labs reviewed. Rec continue current diet. RD following.
--- NOTE | 2017-06-16 16:00 | NUR ---
RESTING QUIETLY IN BED;VISITING WITH FRIEND.
--- NOTE | 2017-06-16 16:10 | NUR ---
PATIENT ADMITTED TO REHAB FROM ACUTE FLOOR. HER HOME HEALTH IS [facility] AND [facility] IS HER PCP(DR. ODELL, RAMAN MILAN APN ). DME AT HOME WALKER, WHEELCHAIR AND SHOWER CHAIR. [facility] [address] IS HER PHARMACY. WILL CONTINUE TO FOLLOW WITH PATIENT AND WILL ASSIST WITH DISCHARGE NEEDS.
--- NOTE | 2017-06-16 19:25 | NUR ---
PT. IN BED WITH HOB UP WITH EYES CLOSED AND RESP. EVEN. PT. AWAKENS EASILY FOR ASSESSMENT AND HAS NO VOICED NEEDS. CALL LIGHT WITHIN REACH.
[2017-06-16 22:09] VITALS: BP 120/68
--- NOTE | 2017-06-16 23:10 | NUR ---
PT. IN BED WITH HOB UP FOR COMFORT LYING ON HER RIGHT SIDE. EYES CLOSED AND RESP. EVEN. CALL LIGHT WITHIN REACH.
--- NOTE | 2017-06-17 03:10 | NUR ---
PT. IN BED LYING ON HER RIGHT SIDE WITH EYES CLOSED AND RESP. DEEP AND EVEN. CALL LIGHT WITHIN REACH.
[2017-06-17 06:11] LABS: BASOPHILS 0.4 % (0-2); EOSINOPHILS 3.4 % (0-7); HEMATOCRIT 27.1 % (36.0-48.0); HEMOGLOBIN 9.2 g/dL (12-16); IMMATURE GRANULOCYTES 0.4 % (0-5); LYMPHOCYTES 24.5 % (15-50); MCH 35.9 pg (26.0-34.0); MCHC 33.9 g/dL (31.0-37.0); MCV 105.9 fL (80.0-100.0); MEAN PLATELET VOLUME 10.4 fL (7.4-10.4); MONOCYTES 16.5 % (2-11); NEUTROPHILS 54.8 % (40-80); RBC 2.56 10x6/uL (4.00-5.40); RDW 17.4 % (11.5-14.5); WBC 2.4 10x3/uL (4.8-10.8)
[2017-06-17 06:33] LABS: ANION GAP 11.8 mmol/L (8-16); CALCIUM 8.4 mg/dL (8.5-10.1); CARBON DIOXIDE 21.9 mmol/L (21.0-32.0); CREATININE - SERUM 0.9 mg/dL (0.6-1.3); POTASSIUM - SERUM 3.7 mmol/L (3.5-5.1)
--- NOTE | 2017-06-17 06:40 | NUR ---
FSBS THIS MORNING 51. GAVE PT. 2 OArin'S AND SUJATHA BEVERLY.
--- NOTE | 2017-06-17 07:37 | NUR ---
SHIFT ASSMT COMPLETED.CL IN REACH.BREAKFAST GIVEN.
[2017-06-17 08:43] VITALS: BP 104/37
[2017-06-17 09:18] LABS: PLATELET COUNT 46 10x3/uL (130-400)
--- NOTE | 2017-06-17 10:00 | NUR ---
UP OOB TO THERAPY.
--- NOTE | 2017-06-17 12:00 | NUR ---
EATING LUNCH.CL IN REACH.SITTING UP IN WC.
--- NOTE | 2017-06-17 15:32 | NUR ---
CARE TEAM MEETING: PATIENT DISCHARGING HOME WITH FRIEND 06/18/17. WILL CONTINUE TO FOLLOW WITH PATIENT ANS ASSIST WITH DISCHARGE NEEDS.
--- NOTE | 2017-06-17 16:00 | NUR ---
HAD GOTTEN UP OOB WITH BOYFRIEND TO GO TO BATHRM AND HAD TURN ALARM OFF.SCAB TO RIGHT KNEE SCRAPED OFF GETTING BACK INTO BED.BANDAID APPLIED.CAUTIONED NOT TO GO TO BATHRM W/O ASSISTANCE FROM STAFF.PLANS TO DC HOME TOMARROW.
--- NOTE | 2017-06-17 19:34 | NUR ---
PERIPHERAL IV TO LEFT LOWER FOREARM D/C'D WITH ANGIOCATH TIP INTACT. PRESSURE HELD AND NO VISIBLE BLEEDING SEEN AND A BANDAID WAS PLACED. PT. TOLERATED PROCEDURE WITHOUT ANY C/O.
--- NOTE | 2017-06-17 19:35 | NUR ---
PT. IN BED WITH HOB UP FOR COMFORT AND IS LYING ON HER RIGHT SIDE WITH EYES CLOSED AND RESP. EVEN. CALL LIGHT WITHIN REACH.
[2017-06-17 20:30] VITALS: BP 127/42
--- NOTE | 2017-06-17 23:10 | NUR ---
PT. IN BED LYING ONHER RIGHT SIDE. EYES CLOSED AND RESP. EVEN. CALL LIGHT WITHIN REACH.
--- NOTE | 2017-06-18 03:05 | NUR ---
PT. IN BED LYING ON HER LEFT SIDE. EYES CLOSED AND RESP. DEEP AND EVEN. CALL LIGHT REMAINS WITHIN REACH.
--- NOTE | 2017-06-18 05:14 | NUR ---
FSBS THIS MORNING 78. PT. DRANK HER MILK AND ONLY ATE ONE SUJATHA CRACKER OUT OF THE PACKAGE. GAVE PT. OJ AND A NEW PACKAGE OF SUJATHA CRACKERS WITH INSTRUCTION AGAIN FOR PT. TO EAT ALL. WILL CHECK BACK ON HER PROGRESS.
--- NOTE | 2017-06-18 07:21 | NUR ---
RESTING QUIETLY IN BED. BED IN LOWEST POSITION. CALL LIGHT IN REACH
[2017-06-18 08:05] VITALS: BP 103/40
[2017-06-18] MEDS ORDERED: GLUCOTROL 5 MG T5 MG PO (08:57)
--- NOTE | 2017-06-18 10:16 | NUR ---
PATIENT DISCHARGING HOME TODAY WITH FRIEND. [facility] WILL RESUME CARE OF PATIENT ALONG WITH [facility] WILL SEE IN 7-10 DAYS. NO NEW DME NEEDED AT THIS TIME. PATIENT CHOICE FORM FOR HOME HEALTH AND [facility] FORM SIGNED, EXPLAINED AND FILED IN CHART. ORDERS HAVE BEEN FAXED WITH CONFORMATION RECIEVED
--- NOTE | 2017-06-18 11:00 | NUR ---
D/C HOME WITH ALL PERSONAL BELONGINGS. WENT OVER D/C MEDS WITH PT AND HER BOYFRIEND. NURSE ADDRESSED AND ANSWERED ALL QUESTIONS FROM PT AND BOYFRIEND. MEDS CALLED INTO [facility] ON [address] LEFT FLOOR IN W/C.
--- NOTE | 2017-07-28 10:49 | DS ---
PATIENT:STEPHANIE SAHA :54 MEDICAL RECORD: [id number] DISCHARGE SUMMARY ADMISSION DATE: 06/09/17 DISCHARGE DATE: 06/18/17 DATE OF DISCHARGE: 06/18/2017 from inpatient rehab. PRIMARY DIAGNOSES: Decreased functional ability and ability to provide activities of daily living secondary to metabolic encephalopathy. SECONDARY DIAGNOSES: 1. Cirrhosis. 2. Hepatitis C. 3. Chronic esophageal varices. 4. Pancytopenia. 5. Hyperammonemia. 6. Diabetes. 7. Urinary tract infection. 8. Hypertension. 9. Hypothyroidism. 10. Morbid obesity. HOSPITAL COURSE: Full H&P is located elsewhere on the chart on this 66-year-old female who was admitted to inpatient rehab for physical therapy and occupational therapy to improve gait, transfer skills, bed mobility, and activities of daily living to a modified independent level. She was evaluated by PT and OT and their plans of care were followed. She required half-way care for observation and assessment and medication administration. Electrolytes were managed by protocol. She was on Rocephin for antibiotic coverage for the UTI. Fingerstick blood sugars were monitored throughout her hospital stay with appropriate adjustment in medications as needed. She was cooperative with therapies, progressing towards goals. Case management was involved for discharge planning. She was considered stable for discharge on 06/18/2017. DISCHARGE MEDICATIONS: As per discharge medication reconciliation. DISCHARGE DISPOSITION: The patient is discharged home. She will have home health for continued PT and OT. She will continue her current diet and level of activity and will follow up with PCP in 7-10 days. At least 30 minutes was spent in this discharge activity. TRANSINT:[id number] Voice Confirmation ID: [id number] DOCUMENT ID: [id number] Dictated By: WINIFRED OTT I have interviewed/examined the above patient and agree with these documented findings. DISCHARGE SUMMARY REPORT [id number] MARIA ASTEPHANIE SCOTT MD at 1400 at 1049 CC: [id number] DICTATION DATE: 07/26/17 183 RESEARCH AND DEVELOPMENT DIRECTOR: 07/27/17 1108 DIS IN 06/18/17 [id number] [place] [address]
== END 2017-06-18 11:00 | disposition home health service (06) | DRG 71 ==
LOC: D.REHAB 17:10
PROVIDERS: ADMIT Emergency Medicine
DX: G93.41 Metabolic encephalopathy (principal); N39.0 Urinary tract infection, site not specified; D61.818 Other pancytopenia; I85.00 Esophageal varices without bleeding; R18.8 Other ascites; E72.20 Disorder of urea cycle metabolism, unspecified; I10 Essential (primary) hypertension; E03.9 Hypothyroidism, unspecified; R01.1 Cardiac murmur, unspecified; E86.0 Dehydration; R53.81 Other malaise; R53.83 Other fatigue; R41.82 Altered mental status, unspecified; K74.60 Unspecified cirrhosis of liver; K72.90 Hepatic failure, unspecified without coma; B96.4 Proteus (mirabilis) (morganii) as the cause of diseases classified elsewhere; E11.65 Type 2 diabetes mellitus with hyperglycemia; Z86.73 Personal history of transient ischemic attack (TIA), and cerebral infarction without residual deficits

== ENCOUNTER 2017-07-15 10:46 | Emergency (ER) | payer MEDICARE, MEDICAID ==
[2017-07-15 11:31] LABS: BASOPHILS 0.1 % (0-2); EOSINOPHILS 1.6 % (0-7); HEMATOCRIT 33.2 % (36.0-48.0); HEMOGLOBIN 11.4 g/dL (12-16); IMMATURE GRANULOCYTES 0.3 % (0-5); LYMPHOCYTES 13.1 % (15-50); MCHC 34.3 g/dL (31.0-37.0); MCV 101.8 fL (80.0-100.0); MEAN PLATELET VOLUME 10.6 fL (7.4-10.4); NEUTROPHILS 74.9 % (40-80); RBC 3.26 10x6/uL (4.00-5.40); RDW 15.1 % (11.5-14.5)
[2017-07-15 11:37] LABS: PLATELET COUNT 56 10x3/uL (130-400)
[2017-07-15 11:50] LABS: ALBUMIN 2.5 g/dL (3.4-5.0); ANION GAP 10.9 mmol/L (8-16); BILIRUBIN - TOTAL 1.91 mg/dL (0.2-1.3); CALCIUM 8.2 mg/dL (8.5-10.1); CARBON DIOXIDE 21.1 mmol/L (21.0-32.0); PROTEIN - SERUM 7.2 g/dL (6.4-8.2)
== END 2017-07-15 13:44 | disposition home or self-care (01) ==
LOC: D.ER 10:46
PROVIDERS: Emergency Medicine
DX: E72.20 Disorder of urea cycle metabolism, unspecified (principal); K76.9 Liver disease, unspecified; I10 Essential (primary) hypertension; E11.9 Type 2 diabetes mellitus without complications

== ENCOUNTER 2017-08-12 21:46 | Inpatient (IN) | payer MEDICARE, MEDICAID ==
[~2017-08-12] VITALS: Ht 157.5 cm; Wt 72.6 kg
[2017-08-12 23:09] LABS: BASOPHILS 0.4 % (0-2); EOSINOPHILS 1.3 % (0-7); HEMATOCRIT 32.5 % (36.0-48.0); HEMOGLOBIN 11.1 g/dL (12-16); IMMATURE GRANULOCYTES 0.2 % (0-5); LYMPHOCYTES 13.3 % (15-50); MCH 34.2 pg (26.0-34.0); MCHC 34.2 g/dL (31.0-37.0); MEAN PLATELET VOLUME 10.8 fL (7.4-10.4); MONOCYTES 13.3 % (2-11); NEUTROPHILS 71.5 % (40-80); PLATELET COUNT 60 10x3/uL (130-400); RBC 3.25 10x6/uL (4.00-5.40); RDW 15.3 % (11.5-14.5); WBC 5.5 10x3/uL (4.8-10.8)
[2017-08-12 23:28] LABS: ALBUMIN 2.5 g/dL (3.4-5.0); CALCIUM 9.1 mg/dL (8.5-10.1); CARBON DIOXIDE 21.4 mmol/L (21.0-32.0); CREATININE - SERUM 1.2 mg/dL (0.6-1.3); POTASSIUM - SERUM 4.4 mmol/L (3.5-5.1)
[2017-08-13 01:28] LABS: APPEARANCE CLEAR (CLEAR); BILIRUBIN NEGATIVE (NEGATIVE); COLOR YELLOW (YELLOW); GLUCOSE NEGATIVE (NEGATIVE); KETONE NEGATIVE (NEGATIVE); NITRITE NEGATIVE (NEGATIVE); PROTEIN NEGATIVE (NEGATIVE); UROBILINOGEN NORMAL (NORMAL)
[2017-08-13 01:30] LABS: UDS - AMPHET NEGATIVE QUAL (NEGATIVE); UDS - BARB NEGATIVE QUAL (NEGATIVE); UDS - BENZO NEGATIVE QUAL (NEGATIVE); UDS - COCAINE NEGATIVE QUAL (NEGATIVE); UDS - OPIATE NEGATIVE QUAL (NEGATIVE); UDS - PCP NEGATIVE QUAL (NEGATIVE); UDS - THC NEGATIVE QUAL (NEGATIVE)
--- NOTE | 2017-08-13 01:48 | NUR ---
PATIENT RECIEVED FROM ER. PATIENT IS UNABLE TO ANSWER QUESTIONS APPROPRIATELY AT THIS TIME. SHE IS SLOW TO RESPOND WITH INTERMITTENT MOMENTS OF NO VERBAL RESPONSE. 2 PIV NOTED IN BILAT AC. NS@15O WITH BE INIATED IN LEFT AC. BED ALARM TURNED ON. BOYFRIEND LEFT TO GET MEDICATION LIST AND IS COMPLETELY DEAF.
[2017-08-13] MEDS ORDERED: CHRONULAC30 ML PO (02:58)
[2017-08-13] MEDS ORDERED: ALDACTONE50 MG PO (03:00)
[2017-08-13] MEDS ORDERED: CYMBALTA30 MG PO (03:03)
[2017-08-13 03:14] VITALS: BP 126/57; BMI 29.3
[2017-08-13 04:00] VITALS: BP 106/42
[2017-08-13 06:26] LABS: BASOPHILS 0.2 % (0-2); HEMATOCRIT 30.8 % (36.0-48.0); HEMOGLOBIN 10.5 g/dL (12-16); IMMATURE GRANULOCYTES 0.2 % (0-5); LYMPHOCYTES 19.2 % (15-50); MCH 34.3 pg (26.0-34.0); MCHC 34.1 g/dL (31.0-37.0); MCV 100.7 fL (80.0-100.0); MEAN PLATELET VOLUME 10.6 fL (7.4-10.4); MONOCYTES 12.3 % (2-11); NEUTROPHILS 66.1 % (40-80); RBC 3.06 10x6/uL (4.00-5.40); RDW 15.4 % (11.5-14.5); WBC 4.5 10x3/uL (4.8-10.8)
[2017-08-13 06:34] LABS: PLATELET COUNT 49 10x3/uL (130-400)
[2017-08-13 06:45] LABS: CALCIUM 8.4 mg/dL (8.5-10.1); CREATININE - SERUM 1.2 mg/dL (0.6-1.3); MAGNESIUM - SERUM 2.4 mg/dL (1.8-2.4)
--- NOTE | 2017-08-13 07:00 | NUR ---
REPORT RECEIVED, ASSUMED CARE OF PT, RESTING, SLOW TO RESPOND, CONFUSED. NO SIGNS OF ACUTE DISTRESS. NO NEEDS VOICED AT THIS TIME. BED IN LOWEST POSITION, SIDE RAILS UP X 2, CALL LIGHT WITHIN REACH.
[2017-08-13 08:48] VITALS: BP 120/48
[2017-08-13 12:33] VITALS: BP 110/46
[2017-08-13 13:46] VITALS: Ht 157.5 cm; Wt 72.6 kg
[2017-08-13 15:55] VITALS: BP 103/47
--- NOTE | 2017-08-13 17:45 | NUR ---
OT NOTE: PT COMPLETED BED MOB AND EOB SITTING WITH MIN A. THANK YOU, TONE TALBOT/Ori
[2017-08-13 20:00] VITALS: BP 89/59
--- NOTE | 2017-08-13 20:00 | NUR ---
ASSESSMENT PER FLOWSHEET. IV PATENT LEFT UPPER ARM OF NS AT 150CC'S/HR SITE CLEAR. SALINE LOCK PATENT RT AND LT AC. MENDIOLA TO BEDSIDE DRAINAGE WITH YELLOW URINE. SR UP X2 CALL LIGHT WITHIN REACH.PATIENT ALERT TO PERSON AND PLACE.
--- NOTE | 2017-08-13 21:00 | NUR ---
MEDS GIVEN PER MAR.
--- NOTE | 2017-08-13 21:30 | NUR ---
[id number]. NO INSULIN GIVEN.
--- NOTE | 2017-08-14 | NUR ---
EYES CLOSED RESPRATIONS WITH EASE AND UNLABORED.
--- NOTE | 2017-08-14 01:35 | NUR ---
RESTING QUIETLY DENIES NEEDS.
[2017-08-14 06:07] LABS: BASOPHILS 0.2 % (0-2); HEMATOCRIT 28.8 % (36.0-48.0); HEMOGLOBIN 9.8 g/dL (12-16); LYMPHOCYTES 15.6 % (15-50); MCH 34.6 pg (26.0-34.0); MCV 101.8 fL (80.0-100.0); MEAN PLATELET VOLUME 10.3 fL (7.4-10.4); MONOCYTES 15.1 % (2-11); NEUTROPHILS 67.1 % (40-80); RBC 2.83 10x6/uL (4.00-5.40); RDW 15.8 % (11.5-14.5); WBC 4.1 10x3/uL (4.8-10.8)
[2017-08-14 06:15] LABS: PLATELET COUNT 39 10x3/uL (130-400)
[2017-08-14 06:17] LABS: ALBUMIN 2.2 g/dL (3.4-5.0); BILIRUBIN - TOTAL 2.09 mg/dL (0.2-1.3); CALCIUM 8.1 mg/dL (8.5-10.1); CARBON DIOXIDE 17.4 mmol/L (21.0-32.0); CREATININE - SERUM 1.1 mg/dL (0.6-1.3); POTASSIUM - SERUM 4.2 mmol/L (3.5-5.1); PROTEIN - SERUM 5.8 g/dL (6.4-8.2)
[2017-08-14 06:18] LABS: ANION GAP 14.8 mmol/L (8-16)
--- NOTE | 2017-08-14 08:00 | NUR ---
ASSESSMENT PER FLOW SHEET.PT WITHOUT DISTRESS. EL AT BEDSIDE.PT HAS BEEN CLEANED AND BED CHANGED. SHE IS INCONTINENT OF STOOLS.MONITOR FOR NEEDS
[2017-08-14 08:08] VITALS: BP 149/60
[2017-08-14 12:26] VITALS: BP 114/62
--- NOTE | 2017-08-14 13:43 | NUR ---
OT NOTE: PT VERY LETHARGIC. DIFFICULTY KEEPING PT AWAKE. PT WAS COMPLETELY NON VERBAL TODAY. MAX/TOTAL ASSISST WITH BED MOB. CB HARMON, OTR/L
[2017-08-14 15:49] VITALS: BP 116/59
--- NOTE | 2017-08-14 18:50 | NUR ---
OT NOTE: PT COMPLETED BUE AROM EX FOR INCREASED AX TOLERANCE AND INCREASED I. PT COMPLETED BED MOB WITH TRAP BAR. PT COMPLETED SIMPLE HYGIENE TASK WITH SET UP. THANK YOU, VAISHNAVI TALBOT
--- NOTE | 2017-08-14 19:00 | NUR ---
REPORT RECEIVED AND CARE OF PT ASSUMED. PT LYING IN SUPINE POSITION WITH EYES CLOSED AND EASY RESPIRATIONS. IV IN LEFT UPPER ARM PATENT WITH NS INFUSING AT 150 ML / HR. WILL MONITOR FOR NEEDS.
[2017-08-14 19:30] VITALS: BP 108/35
--- NOTE | 2017-08-15 01:45 | NUR ---
PT RESTING QUIETLY ON LEFT SIDE WITH EASY RESPIRATIONS. SIDE RAILS UP X2 FOR SAFETY.
[2017-08-15 03:30] VITALS: BP 118/37
--- NOTE | 2017-08-15 04:20 | NUR ---
PT BATHED AND ALL LINENS AND GOWN CHANGED. LOTION APPLIED AND NEW SLIPPER SOCKS PLACED ON BLE. POSITIONED FOR COMFORT. SIDE RAILS UP X2 FOR SAFETY. CALL LIGHT WITHIN REACH.
[2017-08-15 05:22] LABS: BASOPHILS 0.2 % (0-2); EOSINOPHILS 2.3 % (0-7); HEMATOCRIT 31.7 % (36.0-48.0); HEMOGLOBIN 10.6 g/dL (12-16); IMMATURE GRANULOCYTES 0.2 % (0-5); LYMPHOCYTES 9.2 % (15-50); MCH 34.8 pg (26.0-34.0); MCHC 33.4 g/dL (31.0-37.0); MEAN PLATELET VOLUME 10.5 fL (7.4-10.4); MONOCYTES 13.5 % (2-11); NEUTROPHILS 74.6 % (40-80); RBC 3.05 10x6/uL (4.00-5.40)
[2017-08-15 05:25] LABS: MCV 103.9 fL (80.0-100.0); PLATELET COUNT 46 10x3/uL (130-400); WBC 6.2 10x3/uL (4.8-10.8)
[2017-08-15 05:43] LABS: ALBUMIN 2.4 g/dL (3.4-5.0); ANION GAP 12.3 mmol/L (8-16); BILIRUBIN - TOTAL 2.49 mg/dL (0.2-1.3); CALCIUM 8.1 mg/dL (8.5-10.1); CARBON DIOXIDE 16.6 mmol/L (21.0-32.0); CREATININE - SERUM 1.1 mg/dL (0.6-1.3); POTASSIUM - SERUM 3.9 mmol/L (3.5-5.1); PROTEIN - SERUM 6.5 g/dL (6.4-8.2)
--- NOTE | 2017-08-15 07:20 | NUR ---
REPORT RECEIVED FROM [employer] CAMERAMAN NURSE. CALL LIGHT IN REACH.
[2017-08-15 07:47] VITALS: BP 123/55
--- NOTE | 2017-08-15 08:20 | NUR ---
PATIENT IN BED WITH EYES CLOSED RESTING QUIETLY AT THIS TIME. NO COMPLAINTS OR SIGNS OF DISTRESS. IV INTACT. CALL LIGHT WITHIN REACH.
--- NOTE | 2017-08-15 08:30 | NUR ---
ASSESSMENT COMPLETED. BED ALARM ON. CALL LIGHT IN REACH. WILL CONTINUE WITH PLAN OF CARE.
--- NOTE | 2017-08-15 10:08 | NUR ---
AM MEDS ADMINISTERED. CALL LIGHT IN REACH. IN ROOM.
[2017-08-15 12:15] VITALS: BP 137/59
--- NOTE | 2017-08-15 12:55 | NUR ---
IV DC'D WITH TIP INTACT. MENDIOLA CATH REMOVED WITH TIP INTACT.
--- NOTE | 2017-08-15 13:22 | NUR ---
FSBS 238. HUMALOG 4 UNITS SUBQ TO RIGHT ARM. CALL LIGHT IN REACH.
--- NOTE | 2017-08-15 14:51 | NUR ---
TO VEHICLE VIA WC WITH .
== END 2017-08-15 14:54 | disposition home or self-care (01) | DRG 442 ==
LOC: D.ER 21:46 → D.MS 23:27 → D.ER 08-13 00:19 → D.MS 08-15 14:54
PROVIDERS: Family Medicine; ADMIT Family Medicine
DX: K72.90 Hepatic failure, unspecified without coma (principal); R18.8 Other ascites; E72.20 Disorder of urea cycle metabolism, unspecified; E11.65 Type 2 diabetes mellitus with hyperglycemia; R01.1 Cardiac murmur, unspecified; D69.6 Thrombocytopenia, unspecified; I10 Essential (primary) hypertension; E03.9 Hypothyroidism, unspecified; E86.0 Dehydration; R53.81 Other malaise